=== PATIENT | male | born 1955 | race Caucasian/White ===

== ENCOUNTER 2020-02-01 17:19 | Emergency (ER) | payer OTHER ==
[2020-02-01] MEDS ORDERED: Sodium Chloride 0.9% 1000 ML 1,000 ML IV STA ×2 (18:14→20:23)
[2020-02-01] MEDS ORDERED: Sodium Chloride 0.9% 1000 ML 1,000 ML ONE ×2 (18:30→20:24)
[2020-02-01 18:37] LABS: BASOPHIL % 0.2 % (0.0-0.4); Basophil (Absolute #) 0.05 (0-0.4); Eosinophil (Absolute #) 0.01 (0-0.5); Hematocrit 48.3 % (42-50); Hemoglobin 16.4 gm/dl (12.5-18.0); Lymphocyte (Absolute #) 1.54 (1.0-4.6); Lymphocytes % 5.4 % (24.0-44.0); Mean Cell Volume 95.3 fl (78-100); Mean Corpuscular Hemoglobin 32.3 pg (26-32); Mean Platelet Volume 10.4 fl (7.5-11.0); Monocytes % 7.4 % (0.0-12.0); Platelet Count 219 K/mm3 (150-450); Red Blood Count 5.07 M/mm3 (4.1-5.6); Red Cell Distribution Width 13.6 % (11.5-14.0)
[2020-02-01 18:47] LABS: White Blood Count 28.3 K/mm3 (4.0-10.5)
[2020-02-01 18:54] LABS: INR 1.15 (0.8-3.0)
[2020-02-01 18:56] LABS: PTT 28.8 SECONDS (24.1-36.1)
[2020-02-01 19:04] LABS: ALBUMIN 4.4 g/dL (3.5-5.0); ANION GAP 13.1 MEQ/L (5-15); BILIRUBIN,TOTAL 0.8 mg/dL (0.2-1.3); Calcium 9.8 mg/dL (8.4-10.2); Creatinine 1 1.39 mg/dL (0.66-1.25); Potassium 3.8 mmol/L (3.5-5.1); Total Protein 7.7 g/dL (6.3-8.2)
--- NOTE | 2020-02-01 21:22 | ERPHSYRPT ---
- History of Present Illness Time Seen by Provider: 02/01/20 18:20 Source: patient Exam Limitations: no limitations Patient Subjective Stated Complaint: Patient states that he "started taking a higher dose of his blood pressure medicine. He started feeling lightheaded, sick to his stomach and had diarrhea. Patient states that his blood pressure tanked out on him. Triage Nursing Assessment: Patient is a&ox3, ambulatory, patient appears to be short of breath, has posterior wheezes and rales in the posterior bases. Physician History: Patient is a 64-year-old male who presents with a complaint of nausea and vomiting and weakness after change in his blood pressure medications. He is a CT losartan 25 100 mg was increased and he noticed decreased blood pressure chills nausea vomiting and diarrhea and dizziness. Nitro Today/Relief: no nitro taken today Aspirin Treatment Today: no aspirin today Allergies/Adverse Reactions: lisinopril Adverse Reaction (Intermediate, Verified 02/01/20 19:00) dizziness gabapentin Adverse Reaction (Verified 02/01/20 19:00) prostate problems naproxen Adverse Reaction (Verified 02/01/20 18:58) Home Medications: Amlodipine Besylate [Norvasc] 10 mg PO DAILY 02/01/20 [History] Losartan/Hydrochlorothiazide [Losartan-Hctz 100-25 mg Tab] 1 each PO DAILY 01/31 [History] Hx Tetanus, Diphtheria Vaccination/Date Given: Yes Hx Influenza Vaccination/Date Given: No Hx Pneumococcal Vaccination/Date Given: Yes (3 years ago) - Review of Systems Constitutional: Chills, No Fever Eyes: No Symptoms Ears, Nose, & Throat: No Symptoms Respiratory: Dyspnea, Dyspnea on Exertion (RICHARD), Wheezing, No Cough Cardiac: Chest Pain (His chest pain is a heaviness), No Edema, No Syncope Abdominal/Gastrointestinal: Nausea, Vomiting, Diarrhea, No Abdominal Pain Genitourinary Symptoms: No Dysuria Musculoskeletal: No Back Pain, No Neck Pain Skin: No Rash Neurological: Dizziness, No Focal Weakness, No Sensory Changes Psychological: No Symptoms Endocrine: No Symptoms All Other Systems: Reviewed and Negative - Past Medical History Pertinent Past Medical History: Yes Neurological History: No Pertinent History ENT History: No Pertinent History Cardiac History: High Cholesterol, Hypertension Respiratory History: COPD, Sleep Apnea Endocrine Medical History: Other Musculoskeletal History: Arthritis, Degenerative Disk Disease GI Medical History: No Pertinent History History: No Pertinent History Psycho-Social History: Depression Male Reproductive Disorders: No Pertinent History - Past Surgical History Past Surgical History: Yes Neuro Surgical History: No Pertinent History Cardiac: No Pertinent History Respiratory: No Pertinent History Gastrointestinal: No Pertinent History Genitourinary: No Pertinent History Musculoskeletal: Orthopedic Surgery Male Surgical History: No Pertinent History - Social History Smoking Status: Current every day smoker How long have you smoked: 50 Exposure to second hand smoke: Yes Drug Use: marijuana Patient Lives Alone: Yes - Nursing Vital Signs Nursing Vital Signs: Initial Vital Signs Temperature 99.3 F 02/01/20 18:01 Pulse Rate 104 H 02/01/20 18:01 Respiratory Rate 20 02/01/20 18:01 Blood Pressure 108/64 02/01/20 18:01 O2 Sat by Pulse Oximetry 95 02/01/20 18:01 Pain Scale Pain Intensity 4 - Physical Exam General Appearance: no apparent distress, alert Eye Exam: PERRL/EOMI, eyes nml inspection Ears, Nose, Throat Exam: normal ENT inspection, moist mucous membranes Neck Exam: normal inspection, non-tender, supple Respiratory Exam: normal breath sounds, lungs clear, No respiratory distress Cardiovascular Exam: regular rate/rhythm, normal heart sounds, No edema Gastrointestinal/Abdomen Exam: soft, No tenderness, No mass Back Exam: normal inspection, No CVA tenderness, No vertebral tenderness Extremity Exam: normal inspection, normal range of motion Neurologic Exam: alert, 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, cooperative, normal mood/affect, nml cerebellar function, sensation nml, No motor deficits Skin Exam: normal color, warm, dry Lymphatic Exam: No adenopathy SpO2: 96 - Course Nursing assessment & vital signs reviewed: Yes EKG Interpreted by Me: RATE (94), Sinus Rhythm, NORMAL AXIS, NORMAL INTERVALS, Right Bundle Branch Block, Non-specific ST Changes - Radiology Exams Chest X-ray Interpretation: Interpreted by me, Negative Ordered Tests: Active Orders 24 hr Category Date Time Status Automation Controls Expert STAT Care 02/01/20 18:15 Active EKG-ER Only STAT Care 02/01/20 18:14 Active Orthostatic Vital Signs STAT Care 02/01/20 18:17 Active CHEST 1 VIEW (PORTABLE) Stat Exams 02/01/20 18:15 Taken BLOOD CULTURE Stat Lab 02/01/20 21:00 Received CBC W DIFF Stat Lab 02/01/20 18:30 Completed CMP Stat Lab 02/01/20 18:30 Completed CULTURE,URINE Stat Lab 02/01/20 20:38 Ordered Manual Differential NC Stat Lab 02/01/20 18:30 Completed PROTIME WITH INR Stat Lab 02/01/20 18:30 Completed PTT Stat Lab 02/01/20 18:30 Completed TROPONIN Q3H Lab 02/01/20 18:30 Completed TROPONIN Q3H Lab 02/01/20 21:00 Received TROPONIN Q3H Lab 02/02/20 00:15 Ordered TROPONIN Q3H Lab 02/02/20 03:15 Ordered TROPONIN Q3H Lab 02/02/20 06:15 Ordered Medication Summary Generic Name Dose Route Start Last Admin Trade Name Freq PRN Reason Stop Dose Admin Sodium Chloride 1,000 mls @ 999 mls/hr 02/01/20 20:23 02/01/20 20:25 Sodium Chloride 0.9% 1000 Ml IV 02/01/20 21:23 999 mls/hr .Q1H1M STA Administration Discontinued Medications Generic Name Dose Route Start Last Admin Trade Name Freq PRN Reason Stop Dose Admin Sodium Chloride 1,000 mls @ 999 mls/hr 02/01/20 18:14 02/01/20 18:33 Sodium Chloride 0.9% 1000 Ml IV 02/01/20 19:14 999 mls/hr .Q1H1M STA Administration Sodium Chloride Confirm 02/01/20 18:30 Sodium Chloride 0.9% 1000 Ml Administered 02/01/20 18:31 Dose 1,000 mls @ ud .ROUTE .STK-MED ONE Sodium Chloride Confirm 02/01/20 20:24 Sodium Chloride 0.9% 1000 Ml Administered 02/01/20 20:25 Dose 1,000 mls @ ud .ROUTE .STK-MED ONE Lab/Rad Data: Laboratory Result Diagrams 02/01/20 18:30 02/01/20 18:30 Laboratory Results 02/01/20 02/01/20 02/01/20 Range/Units 18:30 18:30 18:30 WBC (4.0-10.5) K/mm3 RBC (4.1-5.6) M/mm3 Hgb (12.5-18.0) gm/dl Hct (42-50) % MCV (78-100) fl MCH (26-32) pg MCHC (32-36) g/dl RDW (11.5-14.0) % Plt Count (150-450) K/mm3 MPV (7.5-11.0) fl Gran % (36.0-66.0) % Eos # (Auto) (0-0.5) Absolute Lymphs (auto) (1.0-4.6) Absolute Monos (auto) (0.0-1.3) Lymphocytes % (24.0-44.0) % Monocytes % (0.0-12.0) % Eosinophils % (0.00-5.0) % Basophils % (0.0-0.4) % Absolute Granulocytes (1.4-6.9) Basophils # (0-0.4) PT 13.0 H (8.83-12.87) SECONDS INR 1.15 (0.8-3.0) APTT 28.8 (24.1-36.1) SECONDS Sodium 137 (137-145) mmol/L Potassium 3.8 (3.5-5.1) mmol/L Chloride 103 (98-107) mmol/L Carbon Dioxide 25 (22-30) mmol/L Anion Gap 13.1 (5-15) MEQ/L BUN 18 (9-20) mg/dL Creatinine 1.39 H (0.66-1.25) mg/dL Estimated GFR 55.0 ML/MIN Glucose 160 H (74-106) mg/dL Calcium 9.8 (8.4-10.2) mg/dL Total Bilirubin 0.80 (0.2-1.3) mg/dL AST 36 (17-59) U/L ALT 27 (0-50) U/L Alkaline Phosphatase 84 (38-126) U/L Troponin I 0.081 H* (0.000-0.034) ng/mL Serum Total Protein 7.7 (6.3-8.2) g/dL Albumin 4.4 (3.5-5.0) g/dL 02/01/20 Range/Units 18:30 WBC 28.3 H* (4.0-10.5) K/mm3 RBC 5.07 (4.1-5.6) M/mm3 Hgb 16.4 (12.5-18.0) gm/dl Hct 48.3 (42-50) % MCV 95.3 (78-100) fl MCH 32.3 H (26-32) pg MCHC 34.0 (32-36) g/dl RDW 13.6 (11.5-14.0) % Plt Count 219 (150-450) K/mm3 MPV 10.4 (7.5-11.0) fl Gran % 87.0 H (36.0-66.0) % Eos # (Auto) 0.01 (0-0.5) Absolute Lymphs (auto) 1.54 (1.0-4.6) Absolute Monos (auto) 2.10 H (0.0-1.3) Lymphocytes % 5.4 L (24.0-44.0) % Monocytes % 7.4 (0.0-12.0) % Eosinophils % 0.0 (0.00-5.0) % Basophils % 0.2 (0.0-0.4) % Absolute Granulocytes 24.60 H (1.4-6.9) Basophils # 0.05 (0-0.4) PT (8.83-12.87) SECONDS INR (0.8-3.0) APTT (24.1-36.1) SECONDS Sodium (137-145) mmol/L Potassium (3.5-5.1) mmol/L Chloride (98-107) mmol/L Carbon Dioxide (22-30) mmol/L Anion Gap (5-15) MEQ/L BUN (9-20) mg/dL Creatinine (0.66-1.25) mg/dL Estimated GFR ML/MIN Glucose (74-106) mg/dL Calcium (8.4-10.2) mg/dL Total Bilirubin (0.2-1.3) mg/dL AST (17-59) U/L ALT (0-50) U/L Alkaline Phosphatase (38-126) U/L Troponin I (0.000-0.034) ng/mL Serum Total Protein (6.3-8.2) g/dL Albumin (3.5-5.0) g/dL - Progress Progress: improved Air Movement: good Blood Culture(s) Obtained: Yes Antibiotics given: No - Departure Departure Disposition: Transfer (Deferred to [facility] non-STEMI, D r Trupti) Clinical Impression: Non-STEMI (non-ST elevated myocardial infarction) Condition: Fair Critical Care Time: Yes Critical Care Time(excluding separately billable procedures): Critical 30-74 mins Referrals: DOCTOR,NO FAMILY [Primary Care Provider] - Instructions: Heart Attack (DC)
[2020-02-01 21:54] VITALS: BP 141/67; PULSE 97; O2SAT 98
[2020-02-02 00:20] LABS: BAND 1 % (0.0-2.0); Lymphocytes 12 % (24-44); Monocyte 7 % (0.0-12.0); Neutrophils 80 % (36.-66.); Total Cells Counted 100
[2020-02-02 00:22] LABS: ANISOCYTOSIS 1+; Platelet Estimate NORMAL (NORMAL); Poikilocytosis 1+
--- NOTE | 2020-02-02 09:03 | XRAY ---
Indication: Short of breath. High blood pressure. Comparison: None Portable chest clear. Heart and mediastinal structures within normal limits for AP portable technique. Bony thorax intact with mild degenerative changes. Impression: Nonacute chest.
== END 2020-02-01 22:02 | disposition short-term general hospital (02) ==
LOC: ED 17:19
DX: I21.3 ST elevation (STEMI) myocardial infarction of unspecified site (principal)
CPT/HCPCS: 36415; 71045; 80053; 84484; 85025; 85610; 85730; 87040; 87086; 93005; 93041; 96360; 99285; 99291

== ENCOUNTER 2021-08-28 12:01 | Emergency (ER) | payer OTHER ==
--- NOTE | 2021-08-28 12:41 | ERPHSYRPT ---
- History of Present Illness Source: patient Exam Limitations: other (Poor historian) Patient Subjective Stated Complaint: py here for fast heart rate and sob since last night,chills Triage Nursing Assessment: pt arrived per wc, resp easy, face mask in place, has dry cough, skin w/d/p Physician History: 66 yo wm w h/o Afib/HTN/possible [place]-CAD/COPD/continued tobacco abuse presents w dyspnea/palpatations beginning at 21:00 10/3 one hour after taking Xaralto. Pt has a h/o Afib, but he is in NSR upon arrival. Dyspnea appears to be worse w exertion. He denies CP/N/V/diaphoresis/melena/hematochezia/orthopnea/PND/edema. Pt continues to smoke 1ppd. Timing/Duration: other (21:00) Severity of Dyspnea-Max: moderate Severity of Dyspnea-Current: mild Possible Cause: frequent episodes Modifying Factors: Improves With: activity Associated Symptoms: wheezing, heart racing, No anxiety, No cough, No chest pain/discomfort, No edema, No fever, No insomnia, No loss of appetite, No lightheadedness, No weakness, No ankle swelling, No chills, No hemoptysis, No calf pain, No dizziness, No heaviness, No lightheadedness, No leg swelling, No muscle spasms feet, No muscle spasms hands, No painful breathing, No productive cough, No sweating, No tightness, No tingling face, No tingling hands Allergies/Adverse Reactions: lisinopril Adverse Reaction (Intermediate, Verified 08/28/21 12:08) dizziness gabapentin Adverse Reaction (Verified 08/28/21 12:08) prostate problems naproxen Adverse Reaction (Verified 08/28/21 12:08) Home Medications: Amlodipine Besylate [Norvasc] 10 mg PO DAILY 02/01/20 [History] Losartan/Hydrochlorothiazide [Losartan-Hctz 100-25 mg Tab] 1 each PO DAILY 02/01/20 [History] Metoprolol Succinate 50 mg [Toprol Xl 50 MG] 1 ea DAILY 08/28/21 [History] Rivaroxaban 10 mg Tablet [Xarelto 10 mg Tablet] 20 mg DAILY 08/28/21 [History] Hx Tetanus, Diphtheria Vaccination/Date Given: Yes Hx Influenza Vaccination/Date Given: No Hx Pneumococcal Vaccination/Date Given: Yes (3 years ago) Immunizations Up to Date: Yes Travel Risk - International Travel Have you traveled outside of the country in past 3 weeks: No - Coronavirus Screening Are you exhibiting any of the following symptoms?: No Close contact with a COVID-19 positive Pt in past 14-21 Days: No - Vaccine Status Have you recieved a Covid-19 vaccination: No - Review of Systems Constitutional: No Symptoms Eyes: No Symptoms Ears, Nose, & Throat: No Symptoms Respiratory: No Symptoms, Dyspnea on Exertion (RICHARD), Wheezing Cardiac: No Symptoms, Palpitations Abdominal/Gastrointestinal: No Symptoms Genitourinary Symptoms: No Symptoms Musculoskeletal: No Symptoms Skin: No Symptoms Neurological: No Symptoms Psychological: No Symptoms Endocrine: No Symptoms Hematologic/Lymphatic: No Symptoms Immunological/Allergic: No Symptoms - Past Medical History Pertinent Past Medical History: Yes Neurological History: No Pertinent History ENT History: No Pertinent History Cardiac History: Arrhythmia, High Cholesterol, Hypertension Respiratory History: COPD, Sleep Apnea Endocrine Medical History: Other Musculoskeletal History: Arthritis, Degenerative Disk Disease GI Medical History: No Pertinent History History: No Pertinent History Psycho-Social History: Depression Male Reproductive Disorders: No Pertinent History - Past Surgical History Past Surgical History: Yes Neuro Surgical History: No Pertinent History Cardiac: No Pertinent History Respiratory: No Pertinent History Gastrointestinal: No Pertinent History Genitourinary: No Pertinent History Musculoskeletal: Orthopedic Surgery Male Surgical History: No Pertinent History - Social History Smoking Status: Current every day smoker How long have you smoked: 50 Exposure to second hand smoke: Yes Drug Use: marijuana Patient Lives Alone: Yes Significant Family History: no pertinent family hx - Nursing Vital Signs Nursing Vital Signs: Initial Vital Signs Temperature 97.7 F 08/28/21 12:03 Pulse Rate 94 H 08/28/21 12:03 Respiratory Rate 20 08/28/21 12:03 Blood Pressure 165/110 08/28/21 12:03 O2 Sat by Pulse Oximetry 98 08/28/21 12:03 Pain Scale Pain Intensity 2 Hypertensive - Physical Exam General Appearance: no apparent distress, anxiety Eye Exam: PERRL/EOMI, eyes nml inspection Ears, Nose, Throat Exam: hearing grossly normal, normal ENT inspection, normal pharynx Neck Exam: normal inspection, non-tender, supple, full range of motion, No Brudzinski, No Kernig's, No meningismus Respiratory Exam: airway intact, wheezing, No respiratory distress Cardiovascular/Chest Exam: normal heart sounds, regular rate/rhythm, normal peripheral pulses, No murmur Abdominal/Gastrointestinal Exam: soft, normal bowel sounds, No tenderness Extremity Exam: non-tender, normal range of motion, normal inspection, normal capillary refill, no calf tenderness, no pedal edema Peripheral Pulses Exam: carotid (R): 2+, carotid (L): 2+ Neurologic Exam: alert, 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, cooperative, 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 nml as tested, normal mood/affect, nml cerebellar function, nml station & gait, sensation nml, EOM palsy Skin Exam: warm, dry, No rash Lymphatic Exam: No adenopathy SpO2 Interpretation: normal SpO2: 98 O2 Delivery: Room Air - Course Nursing assessment & vital signs reviewed: Yes EKG Interpreted by Me: RATE (NSR/R85/Normal QT-QTc/Low voltage/LAFB) - Radiology Exams Chest X-ray Interpretation: Discussed w/ radiologist (NAD) Ordered Tests: Active Orders 24 hr Category Date Time Status Steam Fitter STAT Care 08/28/21 12:38 Completed EKG-ER Only STAT Care 08/28/21 12:34 Completed IV Insertion STAT Care 08/28/21 12:38 Completed CHEST 1 VIEW (PORTABLE) Stat Exams 08/28/21 12:34 Completed CBC W DIFF Stat Lab 08/28/21 12:45 Completed CMP Stat Lab 08/28/21 12:45 Completed MAGNESIUM Stat Lab 08/28/21 12:45 Completed NT PRO BNP Stat Lab 08/28/21 12:45 Completed PROTIME WITH INR Stat Lab 08/28/21 12:45 Completed PTT Stat Lab 08/28/21 12:45 Completed TROPONIN Q3H Lab 08/28/21 12:45 Completed Lab/Rad Data: Laboratory Result Diagrams 08/28/21 12:45 08/28/21 12:45 Laboratory Results 08/28/21 08/28/21 08/28/21 Range/Units 12:45 12:45 12:45 WBC (4.0-10.5) K/mm3 RBC (4.1-5.6) M/mm3 Hgb (12.5-18.0) gm/dl Hct (42-50) % MCV (78-100) fl MCH (26-32) pg MCHC (32-36) g/dl RDW (11.5-14.0) % Plt Count (150-450) K/mm3 MPV (7.5-11.0) fl Gran % (36.0-66.0) % Eos # (Auto) (0-0.5) Absolute Lymphs (auto) (1.0-4.6) Absolute Monos (auto) (0.0-1.3) Lymphocytes % (24.0-44.0) % Monocytes % (0.0-12.0) % Eosinophils % (0.00-5.0) % Basophils % (0.0-0.4) % Absolute Granulocytes (1.4-6.9) Basophils # (0-0.4) PT 16.8 H (9.4-12.5) SECONDS INR 1.42 (0.8-3.0) APTT 37.2 H (25.1-36.5) SECONDS Sodium 140 (137-145) mmol/L Potassium 4.0 (3.5-5.1) mmol/L Chloride 107 (98-107) mmol/L Carbon Dioxide 25 (22-30) mmol/L Anion Gap 12.0 (5-15) MEQ/L BUN 10 (9-20) mg/dL Creatinine 0.99 (0.66-1.25) mg/dL Estimated GFR > 60.0 ML/MIN Glucose 129 H (74-106) mg/dL Calcium 9.6 (8.4-10.2) mg/dL Magnesium 2.0 (1.6-2.3) mg/dL Total Bilirubin 0.50 (0.2-1.3) mg/dL AST 23 (17-59) U/L ALT 19 (0-50) U/L Alkaline Phosphatase 97 (38-126) U/L Troponin I < 0.012 (0.000-0.034) ng/mL NT-Pro-B Natriuret Pep 155 (0-900) pg/mL Serum Total Protein 7.0 (6.3-8.2) g/dL Albumin 4.2 (3.5-5.0) g/dL 08/28/21 Range/Units 12:45 WBC 7.8 (4.0-10.5) K/mm3 RBC 5.36 (4.1-5.6) M/mm3 Hgb 17.7 (12.5-18.0) gm/dl Hct 52.4 H (42-50) % MCV 97.8 (78-100) fl MCH 33.0 H (26-32) pg MCHC 33.8 (32-36) g/dl RDW 13.8 (11.5-14.0) % Plt Count 187 (150-450) K/mm3 MPV 11.7 H (7.5-11.0) fl Gran % 66.6 H (36.0-66.0) % Eos # (Auto) 0.10 (0-0.5) Absolute Lymphs (auto) 1.86 (1.0-4.6) Absolute Monos (auto) 0.62 (0.0-1.3) Lymphocytes % 23.8 L (24.0-44.0) % Monocytes % 7.9 (0.0-12.0) % Eosinophils % 1.3 (0.00-5.0) % Basophils % 0.4 (0.0-0.4) % Absolute Granulocytes 5.20 (1.4-6.9) Basophils # 0.03 (0-0.4) PT (9.4-12.5) SECONDS INR (0.8-3.0) APTT (25.1-36.5) SECONDS Sodium (137-145) mmol/L Potassium (3.5-5.1) mmol/L Chloride (98-107) mmol/L Carbon Dioxide (22-30) mmol/L Anion Gap (5-15) MEQ/L BUN (9-20) mg/dL Creatinine (0.66-1.25) mg/dL Estimated GFR ML/MIN Glucose (74-106) mg/dL Calcium (8.4-10.2) mg/dL Magnesium (1.6-2.3) mg/dL Total Bilirubin (0.2-1.3) mg/dL AST (17-59) U/L ALT (0-50) U/L Alkaline Phosphatase (38-126) U/L Troponin I (0.000-0.034) ng/mL NT-Pro-B Natriuret Pep (0-900) pg/mL Serum Total Protein (6.3-8.2) g/dL Albumin (3.5-5.0) g/dL - Progress Progress: improved Progress Note: 08/28/21 13:42 Pt wo evidence of Afib, ectopy, or malignant rhythm in ER No chest pain or dyspnea in ER. 08/28/21 16:59 Counseled pt/family regarding: lab results, diagnosis, need for follow-up, rad results - Departure Departure Disposition: Home Clinical Impression: Heart palpitations Condition: Stable Critical Care Time: No Referrals: CAROLINE CUEVA NP [Primary Care Provider] - Instructions: Arrhythmias (DC), Palpitations (DC) Additional Instructions: Continue current medications Follow up with your coat joiner in 1-2 days Return to ER for chest pain/shortness of breath/Elevated heart rate
[2021-08-28 13:00] LABS: INR 1.42 (0.8-3.0); PROTIME 16.8 SECONDS (9.4-12.5)
[2021-08-28 13:02] LABS: BASOPHIL % 0.4 % (0.0-0.4); Basophil (Absolute #) 0.03 (0-0.4); Eosinophil % 1.3 % (0.00-5.0); Hematocrit 52.4 % (42-50); Hemoglobin 17.7 gm/dl (12.5-18.0); Lymphocyte (Absolute #) 1.86 (1.0-4.6); Lymphocytes % 23.8 % (24.0-44.0); Mean Cell Volume 97.8 fl (78-100); Mean Corpuscular Hgb Concent. 33.8 g/dl (32-36); Mean Platelet Volume 11.7 fl (7.5-11.0); Monocyte (Absolute #) 0.62 (0.0-1.3); Monocytes % 7.9 % (0.0-12.0); Neutrophil % 66.6 % (36.0-66.0); Platelet Count 187 K/mm3 (150-450); Red Blood Count 5.36 M/mm3 (4.1-5.6); Red Cell Distribution Width 13.8 % (11.5-14.0); White Blood Count 7.8 K/mm3 (4.0-10.5)
[2021-08-28 13:03] LABS: PTT 37.2 SECONDS (25.1-36.5)
[2021-08-28 13:17] VITALS: BP 153/88
--- NOTE | 2021-08-28 13:18 | XRAY ---
Indication: Dyspnea. Comparison: February 01, 2020. Portable chest again demonstrates COPD without focal infiltrate, consolidation, or large effusion. Heart not enlarged. Bony thorax intact. No new/acute findings.
[2021-08-28 13:20] LABS: ALBUMIN 4.2 g/dL (3.5-5.0); ALKALINE PHOSPHATASE 97 U/L (38-126); BLOOD UREA NITROGEN 10 mg/dL (9-20); CHLORIDE 107 mmol/L (98-107); Calcium 9.6 mg/dL (8.4-10.2); Carbon Dioxide 25 mmol/L (22-30); Creatinine 1 0.99 mg/dL (0.66-1.25); EST GLOMERULAR FILTRATION RATE > 60.0 ML/MIN; Glucose 129 mg/dL (74-106); NT PRO BNP 155 pg/mL (0-900); SGOT/AST 23 U/L (17-59); SGPT/ALT 19 U/L (0-50); SODIUM 140 mmol/L (137-145)
[2021-08-28 13:38] VITALS: O2SAT 98
[2021-08-28 13:50] VITALS: PULSE 84
== END 2021-08-28 13:54 | disposition home or self-care (01) ==
LOC: ED 12:01
DX: R00.2 Palpitations (principal); Z79.899 Other long term (current) drug therapy; Z86.79 Personal history of other diseases of the circulatory system; I10 Essential (primary) hypertension; Z79.01 Long term (current) use of anticoagulants
CPT/HCPCS: 36000; 36415; 71045; 80053; 83735; 83880; 84484; 85025; 85610; 85730; 93005; 93041; 99284

== ENCOUNTER 2022-01-06 16:32 | Observation (INO) | payer OTHER ==
[2022-01-06] MEDS ORDERED: Sodium Chloride 0.9% 1000 ML 1,000 ML IV STA (16:57)
[2022-01-06] MEDS ORDERED: MORPHINE SULFATE 2 MG INJ IV ONE (16:57)
[2022-01-06] MEDS ORDERED: Zofran 4 MG/2 ML VIAL IV ONE (16:57)
[2022-01-06] MEDS ORDERED: Sodium Chloride 0.9% 1000 ML 1,000 ML ONE (17:19)
[2022-01-06] MEDS ORDERED: Zofran 4 MG/2 ML VIAL ONE (17:19)
[2022-01-06] MEDS ORDERED: MORPHINE SULFATE 2 MG INJ ONE (17:19)
[2022-01-06] MEDS ORDERED: MORPHINE SULFATE 4 MG INJ IV ONE (17:22)
[2022-01-06] MEDS ORDERED: MORPHINE SULFATE 4 MG INJ ONE (17:42)
--- NOTE | 2022-01-06 17:52 | ERPHSYRPT ---
- History of Present Illness Time Seen by Provider: 01/06/22 16:50 Historian: patient Exam Limitations: no limitations Patient Subjective Stated Complaint: pt here for nausea, loose stools, weakness, chills and back pain for 3-4 days Triage Nursing Assessment: pt alert, resp easy, face mask in place, no cough, no edema noted, skin w/d/p Physician History: 66 years old male with history of atrial fibrillation on Xarelto, hypertension, hyperlipidemia presented in the ER with chief complaint of generalized abdominal pain off and on for the last 3 days with associated nausea vomiting and diarrhea. Patient also reports generalized weakness fatigue tiredness, lack of energy to do his routine activities. Unable to hold much down. Complaint of minimal productive cough but no chest pain or palpitations. No fever or chills reported. Timing/Duration: day(s) (4), gradual onset, worse Activities at Onset: rest Quality: cramping Abdominal Pain Onset Location: generalized abdomen Pain Radiation: no radiation Severity of Pain-Max: moderate Severity of Pain-Current: moderate Modifying Factors: Improves With: coughing Associated Symptoms: diarrhea, fatigue, nausea, vomiting Previous symptoms: no prior history Allergies/Adverse Reactions: lisinopril Adverse Reaction (Intermediate, Verified 01/06/22 16:40) dizziness gabapentin Adverse Reaction (Verified 01/06/22 16:40) prostate problems naproxen Adverse Reaction (Verified 01/06/22 16:40) Home Medications: Losartan/Hydrochlorothiazide [Losartan-Hctz 100-25 mg Tab] 1 each PO DAILY 02/01/20 [History] Metoprolol Succinate 50 mg [Toprol Xl 50 MG] 25 mg DAILY 08/28/21 [History] Rivaroxaban 10 mg Tablet [Xarelto 10 mg Tablet] 20 mg DAILY 08/28/21 [History] Diltiazem HCl [Diltiazem 24Hr ER] 1 ea DAILY 01/06/22 [History] Famotidine [Pepcid AC] 1 ea DAILY 01/06/22 [History] Montelukast Sodium 10 mg [Singulair 10 MG] 1 ea DAILY 01/06/22 [History] Hx Tetanus, Diphtheria Vaccination/Date Given: Yes Hx Influenza Vaccination/Date Given: No Hx Pneumococcal Vaccination/Date Given: Yes (3 years ago) Immunizations Up to Date: Yes Travel Risk - International Travel Have you traveled outside of the country in past 3 weeks: No - Coronavirus Screening Are you exhibiting any of the following symptoms?: Yes Symptoms: Cough: New Onset, Shortness of Breath, Vomiting/Diarrhea, Headaches/Body Aches/Fatigue Close contact with a COVID-19 positive Pt in past 14-21 Days: Yes - Vaccine Status Have you recieved a Covid-19 vaccination: No - Review of Systems Constitutional: Fatigue, Weakness Eyes: No Symptoms Ears, Nose, & Throat: No Symptoms Respiratory: Cough Cardiac: No Symptoms Abdominal/Gastrointestinal: Abdominal Pain, Nausea, Vomiting, Diarrhea Genitourinary Symptoms: No Symptoms Musculoskeletal: Back Pain Neurological: No Symptoms Psychological: No Symptoms Endocrine: No Symptoms Hematologic/Lymphatic: No Symptoms Immunological/Allergic: No Symptoms - Past Medical History Pertinent Past Medical History: Yes Neurological History: No Pertinent History ENT History: No Pertinent History Cardiac History: Arrhythmia, High Cholesterol, Hypertension Respiratory History: COPD, Sleep Apnea Endocrine Medical History: Other Musculoskeletal History: Arthritis, Degenerative Disk Disease GI Medical History: No Pertinent History History: No Pertinent History Psycho-Social History: Depression Male Reproductive Disorders: No Pertinent History - Past Surgical History Past Surgical History: Yes Neuro Surgical History: No Pertinent History Cardiac: No Pertinent History Respiratory: No Pertinent History Gastrointestinal: No Pertinent History Genitourinary: No Pertinent History Musculoskeletal: Orthopedic Surgery Male Surgical History: No Pertinent History - Social History Smoking Status: Current every day smoker How long have you smoked: 50 Exposure to second hand smoke: Yes Drug Use: marijuana Patient Lives Alone: Yes Significant Family History: no pertinent family hx - Nursing Vital Signs Nursing Vital Signs: Initial Vital Signs Temperature 97.5 F 01/06/22 16:33 Pulse Rate 107 H 01/06/22 16:33 Respiratory Rate 20 01/06/22 16:33 Blood Pressure 170/88 01/06/22 16:33 O2 Sat by Pulse Oximetry 95 01/06/22 16:33 Pain Scale Pain Intensity 10 - Physical Exam General Appearance: no apparent distress, alert Eye Exam: PERRL/EOMI, eyes nml inspection Ears, Nose, Throat Exam: normal ENT inspection, TMs normal, pharynx normal, dry mucous membranes Neck Exam: normal inspection, non-tender, supple, full range of motion Respiratory Exam: normal breath sounds, lungs clear Cardiovascular Exam: regular rate/rhythm, normal heart sounds Gastrointestinal/Abdomen Exam: soft, normal bowel sounds, tenderness (Generalized mild to moderate), No guarding Back Exam: normal inspection, normal range of motion, No CVA tenderness Extremity Exam: normal inspection, normal range of motion, pelvis stable Neurologic Exam: alert, 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, cooperative Skin Exam: normal color SpO2 Interpretation: normal SpO2: 95 O2 Delivery: Room Air - Course EKG Interpreted by Me: RATE (101), Sinus Tach, Left Burton Deviation, LAFB, Right Bundle Branch Block, Non-specific ST Changes Ordered Tests: Active Orders 24 hr Category Date Time Status EKG-ER Only STAT Care 01/06/22 16:57 Active IV Insertion STAT Care 01/06/22 16:57 Active ABDOMEN AND PELVIS W/0 CONTRAS [CT] Stat Exams 01/06/22 16:57 Completed CHEST WITHOUT CONTRAST [CT] Stat Exams 01/06/22 16:58 Completed BLOOD CULTURE Stat Lab 01/06/22 17:50 Received CBC W DIFF Stat Lab 01/06/22 17:35 Completed CMP Stat Lab 01/06/22 17:35 Completed COVID AG-BINAX NOW RAPID TEST Stat Lab 01/06/22 18:33 Completed LIPASE Stat Lab 01/06/22 17:35 Completed Lactic Acid Stat Lab 01/06/22 16:57 Completed Lactic Acid Stat Lab 01/06/22 19:10 Completed Manual Differential NC Stat Lab 01/06/22 17:35 Completed TROPONIN Q3H Lab 01/06/22 17:35 Completed TROPONIN Q3H Lab 01/06/22 19:56 Received TROPONIN Q3H Lab 01/06/22 23:00 Ordered TROPONIN Q3H Lab 01/07/22 02:00 Ordered TROPONIN Q3H Lab 01/07/22 05:00 Ordered UA W/RFX UR CULTURE Stat Lab 01/06/22 18:58 Completed Transfer Order Routine Transfer 01/06/22 Ordered Medication Summary Discontinued Medications Generic Name Dose Route Start Last Admin Trade Name Freq PRN Reason Stop Dose Admin Sodium Chloride 1,000 mls @ 999 mls/hr 01/06/22 16:57 01/06/22 19:11 Sodium Chloride 0.9% 1000 Ml IV 01/06/22 17:57 Infused .Q1H1M STA Infusion Sodium Chloride Confirm 01/06/22 17:19 Sodium Chloride 0.9% 1000 Ml Administered 01/06/22 17:20 Dose 1,000 mls @ ud .ROUTE .STK-MED ONE Levofloxacin/Dextrose 750 mg in 150 mls @ 100 mls/hr 01/06/22 19:13 Levofloxacin 750mg/150ml D5w IV 01/06/22 20:42 STAT STA Piperacillin Sod/Tazobactam 100 mls @ 200 mls/hr 01/06/22 19:13 01/06/22 19:45 Sod 3.375 gm/ Sodium Chloride IV 01/06/22 19:42 200 mls/hr STAT ONE Administration Sodium Chloride Confirm 01/06/22 19:44 Sodium Chloride 100ml Mini-Bag Plus Administered 01/06/22 19:45 Dose 100 mls @ ud IV .STK-MED ONE Morphine Sulfate 2 mg 01/06/22 16:57 01/06/22 17:38 Morphine Sulfate 2 Mg/Ml Inj IV 01/06/22 16:58 Not Given STAT ONE Morphine Sulfate Confirm 01/06/22 17:19 Morphine Sulfate 2 Mg/Ml Inj Administered 01/06/22 17:20 Dose 2 mg .ROUTE .STK-MED ONE Morphine Sulfate 4 mg 01/06/22 17:22 01/06/22 17:36 Morphine Sulfate 4 Mg/Ml Injection IV 01/06/22 17:23 4 mg STAT ONE Administration Morphine Sulfate Confirm 01/06/22 17:42 Morphine Sulfate 4 Mg/Ml Injection Administered 01/06/22 17:43 Dose 4 mg .ROUTE .STK-MED ONE Ondansetron HCl 4 mg 01/06/22 16:57 01/06/22 17:33 Ondansetron Hcl 4 Mg/2 Ml Vial IV 01/06/22 16:58 4 mg STAT ONE Administration Ondansetron HCl Confirm 01/06/22 17:19 Ondansetron Hcl 4 Mg/2 Ml Vial Administered 01/06/22 17:20 Dose 4 mg .ROUTE .STK-MED ONE Piperacillin Sod/Tazobactam Sod Confirm 01/06/22 19:44 Piperacillin/Tazobactam Sodium 3.375 Gm Vial Administered 01/06/22 19:45 Dose 3.375 gm IV .STK-MED ONE Lab/Rad Data: Laboratory Result Diagrams 01/06/22 17:35 01/06/22 17:35 Laboratory Results 01/06/22 01/06/2201/06/22 Range/Units 19:10 18:58 18:33 WBC (4.0-10.5) K/mm3 RBC (4.1-5.6) M/mm3 Hgb (12.5-18.0) gm/dl Hct (42-50) % MCV (78-100) fl MCH (26-32) pg MCHC (32-36) g/dl RDW (11.5-14.0) % Plt Count (150-450) K/mm3 MPV (7.5-11.0) fl Sodium (137-145) mmol/L Potassium (3.5-5.1) mmol/L Chloride (98-107) mmol/L Carbon Dioxide (22-30) mmol/L Anion Gap (5-15) MEQ/L BUN (9-20) mg/dL Creatinine (0.66-1.25) mg/dL Estimated GFR ML/MIN Glucose (74-106) mg/dL Lactic Acid 1.1 (0.4-2.0) Calcium (8.4-10.2) mg/dL Total Bilirubin (0.2-1.3) mg/dL AST (17-59) U/L ALT (0-50) U/L Alkaline Phosphatase (38-126) U/L Troponin I (0.000-0.034) ng/mL Serum Total Protein (6.3-8.2) g/dL Albumin (3.5-5.0) g/dL Lipase (23-300) U/L Urine Color YELLOW (YELLOW) Urine Appearance CLEAR (CLEAR) Urine pH 6.0 (5-6) Ur Specific Bri[place] 1.010 (1.005-1.025) Urine Protein NEGATIVE (Negative) Urine Ketones SMALL (NEGATIVE) Urine Blood NEGATIVE (0-5) Gaston/ul Urine Nitrite NEGATIVE (NEGATIVE) Urine Bilirubin NEGATIVE (NEGATIVE) Urine Urobilinogen 4 (0-1) mg/dL Ur Leukocyte Esterase NEGATIVE (NEGATIVE) Urine WBC (Auto) NONE (0-5) /HPF Urine RBC (Auto) NONE (0-2) /HPF U Epithel Cells (Auto) NONE (FEW) /HPF Urine Bacteria (Auto) NONE (NEGATIVE) /HPF Urine Mucus (Auto) SLIGHT (NEGATIVE) /HPF Urine Culture Reflexed NO (NO) Urine Glucose NEGATIVE (NEGATIVE) mg/dL SARS-CoV-2 Ag (Rapid) NEGATIVE (NEGATIVE) 01/06/22 01/06/22 01/06/22 Range/Units 17:35 17:35 17:35 WBC 31.4 H* (4.0-10.5) K/mm3 RBC 5.32 (4.1-5.6) M/mm3 Hgb 17.4 (12.5-18.0) gm/dl Hct 50.1 H (42-50) % MCV 94.2 (78-100) fl MCH 32.7 H (26-32) pg MCHC 34.7 (32-36) g/dl RDW 13.7 (11.5-14.0) % Plt Count 243 (150-450) K/mm3 MPV 11.0 (7.5-11.0) fl Sodium 136 L (137-145) mmol/L Potassium 3.6 (3.5-5.1) mmol/L Chloride 101 (98-107) mmol/L Carbon Dioxide 23 (22-30) mmol/L Anion Gap 15.8 H (5-15) MEQ/L BUN 10 (9-20) mg/dL Creatinine 1.05 (0.66-1.25) mg/dL Estimated GFR > 60.0 ML/MIN Glucose 127 H (74-106) mg/dL Lactic Acid (0.4-2.0) Calcium 9.0 (8.4-10.2) mg/dL Total Bilirubin 1.70 H (0.2-1.3) mg/dL AST 15 L (17-59) U/L ALT 13 (0-50) U/L Alkaline Phosphatase 107 (38-126) U/L Troponin I < 0.012 (0.000-0.034) ng/mL Serum Total Protein 6.8 (6.3-8.2) g/dL Albumin 3.8 (3.5-5.0) g/dL Lipase 30 (23-300) U/L Urine Color (YELLOW) Urine Appearance (CLEAR) Urine pH (5-6) Ur Specific Bri[place] (1.005-1.025) Urine Protein (Negative) Urine Ketones (NEGATIVE) Urine Blood (0-5) Gaston/ul Urine Nitrite (NEGATIVE) Urine Bilirubin (NEGATIVE) Urine Urobilinogen (0-1) mg/dL Ur Leukocyte Esterase (NEGATIVE) Urine WBC (Auto) (0-5) /HPF Urine RBC (Auto) (0-2) /HPF U Epithel Cells (Auto) (FEW) /HPF Urine Bacteria (Auto) (NEGATIVE) /HPF Urine Mucus (Auto) (NEGATIVE) /HPF Urine Culture Reflexed (NO) Urine Glucose (NEGATIVE) mg/dL SARS-CoV-2 Ag (Rapid) (NEGATIVE) 01/06/22 Range/Units 16:57 WBC (4.0-10.5) K/mm3 RBC (4.1-5.6) M/mm3 Hgb (12.5-18.0) gm/dl Hct (42-50) % MCV (78-100) fl MCH (26-32) pg MCHC (32-36) g/dl RDW (11.5-14.0) % Plt Count (150-450) K/mm3 MPV (7.5-11.0) fl Sodium (137-145) mmol/L Potassium (3.5-5.1) mmol/L Chloride (98-107) mmol/L Carbon Dioxide (22-30) mmol/L Anion Gap (5-15) MEQ/L BUN (9-20) mg/dL Creatinine (0.66-1.25) mg/dL Estimated GFR ML/MIN Glucose (74-106) mg/dL Lactic Acid 2.0 (0.4-2.0) Calcium (8.4-10.2) mg/dL Total Bilirubin (0.2-1.3) mg/dL AST (17-59) U/L ALT (0-50) U/L Alkaline Phosphatase (38-126) U/L Troponin I (0.000-0.034) ng/mL Serum Total Protein (6.3-8.2) g/dL Albumin (3.5-5.0) g/dL Lipase (23-300) U/L Urine Color (YELLOW) Urine Appearance (CLEAR) Urine pH (5-6) Ur Specific Bri[place] (1.005-1.025) Urine Protein (Negative) Urine Ketones (NEGATIVE) Urine Blood (0-5) Gaston/ul Urine Nitrite (NEGATIVE) Urine Bilirubin (NEGATIVE) Urine Urobilinogen (0-1) mg/dL Ur Leukocyte Esterase (NEGATIVE) Urine WBC (Auto) (0-5) /HPF Urine RBC (Auto) (0-2) /HPF U Epithel Cells (Auto) (FEW) /HPF Urine Bacteria (Auto) (NEGATIVE) /HPF Urine Mucus (Auto) (NEGATIVE) /HPF Urine Culture Reflexed (NO) Urine Glucose (NEGATIVE) mg/dL SARS-CoV-2 Ag (Rapid) (NEGATIVE) - Progress Progress: improved, pain not gone completely, re-examined Progress Note: 01/06/22 19:19 66-year-old is evaluated for nausea vomiting abdominal pain/Covid-like symptoms. Patient did not have any obvious difficulty breathing. Is given fluids and symptomatic treatment for pain, on reevaluation feeling better. Patient has a white count of 31 with chemistries showing elevated bilirubin of 1.7. I have obtained CT chest/abdomen pelvis which showed left upper lobe pneumonia and some cavitary lesions and no acute finding in the abdomen. He is given broad- spectrum antibiotics Levaquin and Zosyn. Discussed with and patient is admitted. Discussed with : Qiana Will see patient in: hospital (observation) Counseled pt/family regarding: lab results, diagnosis, need for follow-up, rad results, smoking cessation - Departure Departure Disposition: Observation Clinical Impression: Pneumonia, Gastroenteritis Condition: Stable Critical Care Time: No Referrals: CAROLINE CUEVA NP [Primary Care Provider] - Follow up/PCP as directed
[2022-01-06 17:55] LABS: Hematocrit 50.1 % (42-50); Hemoglobin 17.4 gm/dl (12.5-18.0); Mean Cell Volume 94.2 fl (78-100); Mean Corpuscular Hemoglobin 32.7 pg (26-32); Mean Corpuscular Hgb Concent. 34.7 g/dl (32-36); Platelet Count 243 K/mm3 (150-450); Red Blood Count 5.32 M/mm3 (4.1-5.6); Red Cell Distribution Width 13.7 % (11.5-14.0)
[2022-01-06 18:00] LABS: White Blood Count 31.4 K/mm3 (4.0-10.5)
[2022-01-06 18:04] LABS: ALBUMIN 3.8 g/dL (3.5-5.0); ALKALINE PHOSPHATASE 107 U/L (38-126); ANION GAP 15.8 MEQ/L (5-15); BLOOD UREA NITROGEN 10 mg/dL (9-20); CHLORIDE 101 mmol/L (98-107); Carbon Dioxide 23 mmol/L (22-30); Creatinine 1 1.05 mg/dL (0.66-1.25); EST GLOMERULAR FILTRATION RATE > 60.0 ML/MIN; Glucose 127 mg/dL (74-106); LIPASE 30 U/L (23-300); Potassium 3.6 mmol/L (3.5-5.1); SGOT/AST 15 U/L (17-59); SGPT/ALT 13 U/L (0-50); SODIUM 136 mmol/L (137-145); Total Protein 6.8 g/dL (6.3-8.2)
[2022-01-06 19:01] LABS: COVID AG -BINAX NOW RAPID TEST NEGATIVE (NEGATIVE)
[2022-01-06] MEDS ORDERED: Zosyn 3.375 GM Vial 3.375 GM in Sodium Chloride 100ML MINI-BAG PLUS 100 ML IV ONE (19:13)
[2022-01-06] MEDS ORDERED: LEVOFLOXACIN 750MG/150ML D5W 750 MG/150 ML BAG IV STA (19:13)
[2022-01-06 19:22] LABS: Appearance CLEAR (CLEAR); Bilirubin NEGATIVE (NEGATIVE); Blood NEGATIVE Ery/ul (0-5); Glucose NEGATIVE (NEGATIVE); Ketones SMALL (NEGATIVE); Leukocyte Esterase NEGATIVE (NEGATIVE); Mucus SLIGHT /HPF (NEGATIVE); Nitrite NEGATIVE (NEGATIVE); Protein,Urine Dip NEGATIVE (Negative); Urobilinogen 4 mg/dL (0-1)
--- NOTE | 2022-01-06 19:36 | XRAY ---
Indication: Cough, short of breath, and abdomen pain. Multiple contiguous axial images obtained through the abdomen and pelvis without contrast. Comparison: None. CT chest reported separately. Noncontrasted stomach and bowel loops appear nonobstructed. Normal appendix. Scattered colonic diverticulosis without diverticulitis. No free fluid/air. Nonobstructing left renal punctate calculus. Tiny splenic calcified granulomas. Remaining liver, gallbladder, pancreas, spleen, adrenal glands, kidneys, ureters, and bladder appear unremarkable for noncontrast exam. Mild scattered aortoiliac calcifications without AAA. Osseous structures intact with moderate degenerative changes throughout the thoracolumbar spine and both hips. No ventral or inguinal hernias. Impression: 1. Nonobstructing left renal micro-calculus, colonic diverticulosis, chronic bony findings, and old granulomatous disease. 2. Remaining CT abdomen/pelvis without contrast exam is negative. Comment: Preliminary interpretation made by C. No critical discrepancy.
--- NOTE | 2022-01-06 19:39 | XRAY ---
Indication: Cough and short of breath. Multiple contiguous axial images obtained through the chest without contrast. Comparison: November 06, 2019. New posterior right upper lobe consolidating airspace disease. Medial left lower lobe demonstrates new 3 cm irregular noncalcified subpleural masslike opacity with small cavitation. Partial differential includes bronchogenic carcinoma, metastasis, tuberculosis, and cavitating pneumonia. Elsewhere there remains diffuse centrilobular pulmonary emphysema with minimal scattered fibrosis/scarring. No effusion or pneumothorax. Heart not enlarged. Aorta is again minimally arteriosclerotic without aneurysm. Stable small right hilar calcified nodes. No pathologic mediastinal lymphadenopathy. Bony thorax intact again with mild degenerative changes throughout the spine. CT abdomen/pelvis reported separately. Impression: 1. New right upper lobe airspace disease. 2. New irregular left lower lobe cavitary mass. Partial differential offered above. 3. Again pulmonary emphysema and old granulomatous disease. Comment: Preliminary interpretation made by C. No critical discrepancy.
[2022-01-06] MEDS ORDERED: Zosyn 3.375 GM Vial IV ONE (19:44)
[2022-01-06] MEDS ORDERED: Sodium Chloride 100ML MINI-BAG PLUS 100 ML IV ONE (19:44)
[2022-01-06 21:00] LABS: INFLUENZA A NEGATIVE (NEGATIVE); INFLUENZA B NEGATIVE (NEGATIVE); RESPIRATORY SYNCTIAL VIRUS NEGATIVE (Negative); SARS-CoV-2 Xpert Express NEGATIVE (NEGATIVE)
[2022-01-06] MEDS ORDERED: LEVOFLOXACIN 750MG/150ML D5W 750 MG/150 ML BAG IV ONE (21:00)
[2022-01-06] MEDS: MORPHINE SULFATE 2 MG INJ IV PRN (22:42)
[2022-01-06] MEDS: Sodium Chloride 0.9% 1000 ML 1,000 ML IV SCH (22:45)
[2022-01-06 23:16] LABS: BAND 5 % (0.0-2.0); Basophil 1 % (0.0-1.0); Lymphocytes 2 % (24-44); Monocyte 3 % (0.0-12.0); Neutrophils 89 % (36.-66.); Platelet Estimate NORMAL (NORMAL); Total Cells Counted 100
[2022-01-07] MEDS: DUONEB 0.5-3 MG/3 ml Neb IH SCH ×3 (00:24→19:00)
[2022-01-07] MEDS ORDERED: Zosyn 3.375 GM Vial IV ONE ×2 (00:37→06:28)
[2022-01-07] MEDS ORDERED: Sodium Chloride 100ML MINI-BAG PLUS 100 ML IV ONE ×2 (00:39→06:30)
[2022-01-07] MEDS: Zosyn 3.375 GM Vial 3.375 GM in Sodium Chloride 100ML MINI-BAG PLUS 100 ML IV SCH ×4 (00:43→19:59)
[2022-01-07] MEDS: TYLENOL 325 MG PO PRN ×2 (00:58→23:34)
[2022-01-07] MEDS: MORPHINE SULFATE 2 MG INJ IV PRN ×4 (04:51→21:03)
[2022-01-07 05:13] LABS: Absolute Neutrophil Ct (ANC) 26.32 (1.4-6.9); Basophil (Absolute #) 0.03 (0-0.4); Eosinophil % 0.2 % (0.00-5.0); Eosinophil (Absolute #) 0.05 (0-0.5); Hematocrit 46.9 % (42-50); Hemoglobin 15.9 gm/dl (12.5-18.0); Lymphocyte (Absolute #) 1.33 (1.0-4.6); Lymphocytes % 4.3 % (24.0-44.0); Mean Cell Volume 97.1 fl (78-100); Mean Corpuscular Hemoglobin 32.9 pg (26-32); Mean Corpuscular Hgb Concent. 33.9 g/dl (32-36); Monocyte (Absolute #) 3.08 (0.0-1.3); Neutrophil % 85.4 % (36.0-66.0); Platelet Count 182 K/mm3 (150-450); Red Blood Count 4.83 M/mm3 (4.1-5.6); Red Cell Distribution Width 14.1 % (11.5-14.0)
[2022-01-07 05:24] LABS: White Blood Count 30.8 K/mm3 (4.0-10.5)
[2022-01-07 05:39] LABS: ALBUMIN 3.4 g/dL (3.5-5.0); ALKALINE PHOSPHATASE 77 U/L (38-126); ANION GAP 10.8 MEQ/L (5-15); BLOOD UREA NITROGEN 11 mg/dL (9-20); CHLORIDE 105 mmol/L (98-107); Calcium 8.4 mg/dL (8.4-10.2); Carbon Dioxide 24 mmol/L (22-30); Creatinine 1 1.05 mg/dL (0.66-1.25); EST GLOMERULAR FILTRATION RATE > 60.0 ML/MIN; Glucose 111 mg/dL (74-106); Potassium 3.9 mmol/L (3.5-5.1); SGOT/AST 13 U/L (17-59); SGPT/ALT 11 U/L (0-50); SODIUM 135 mmol/L (137-145); Total Protein 6.5 g/dL (6.3-8.2)
[2022-01-07 06:54] LABS: BAND 12 % (0.0-2.0); Eosinophil 1 % (0.00-3.0); Lymphocytes 4 % (24-44); Monocyte 8 % (0.0-12.0); Neutrophils 75 % (36.-66.); Platelet Estimate NORMAL (NORMAL); Total Cells Counted 100; Toxic Granulation 2+
[2022-01-07 06:55] LABS: Polychromasia 1+
--- NOTE | 2022-01-07 07:29 | PCM.HP ---
History of Present Illness - Chief Complaint Chief Complaint: c/o abdominal pain, nausea, vomiting for 1-2 days History of Present Illness: is a 66 year old male.with history of atrial fibrillation on Xarelto, hypertension, hyperlipidemia presented in the ER with chief complaint of gene ralized abdominal pain off and on for the last 3 days with associated nausea vomiting and diarrhea. Patient also reports generalized weakness fatigue tiredness, lack of energy to do his routine activities. Unable to hold much down. Complaint of minimal productive cough but no chest pain or palpitations. No fever or chills reported. Timing/Duration: day(s) (4), gradual onset, worse Activities at Onset: rest Quality: cramping Abdominal Pain Onset Location: generalized abdomen Pain Radiation: no radiation Severity of Pain-Max: moderate Severity of Pain-Current: moderate Modifying Factors: Improves With: coughing Associated Symptoms: diarrhea, fatigue, nausea, vomiting - Review of Systems Constitutional: No Fever, No Chills Eyes: No Symptoms Ears, Nose, & Throat: No Symptoms Respiratory: No Cough, No Short Of Breath Cardiac: No Chest Pain, No Edema, No Syncope Abdominal/Gastrointestinal: Abdominal Pain, Nausea, Vomiting, Diarrhea, Appetite Changes Genitourinary Symptoms: No Dysuria Musculoskeletal: No Back Pain, No Neck Pain Skin: No Rash Neurological: No Dizziness, No Focal Weakness, No Sensory Changes Psychological: No Symptoms Endocrine: No Symptoms Hematologic/Lymphatic: No Symptoms Immunological/Allergic: No Symptoms Medications & Allergies Home Medications: Home Medication List Losartan/Hydrochlorothiazide [Losartan-Hctz 100-25 mg Tab] 1 each PO DAILY 02/01/20 [History Confirmed 01/07/22] Metoprolol Succinate 50 mg [Toprol Xl 50 MG] 25 mg DAILY 08/28/21 [History Confirmed 01/07/22] Rivaroxaban 10 mg Tablet [Xarelto 10 mg Tablet] 20 mg DAILY 08/28/21 [History Confirmed 01/07/22] Diltiazem HCl [Diltiazem 24Hr ER] 1 ea DAILY 01/06/22 [History Confirmed 01/07/22] Famotidine [Pepcid AC] 1 ea DAILY 01/06/22 [History Confirmed 01/07/22] Montelukast Sodium 10 mg [Singulair 10 MG] 1 ea DAILY 01/06/22 [History Confirmed 01/07/22] Allergies/Adverse Reactions: Allergies Allergy/AdvReac Type Severity Reaction Status Date / Time lisinopril AdvReac Intermediate Verified 01/06/22 16:40 gabapentin AdvReac Verified 01/06/22 16:40 naproxen AdvReac Verified 01/06/22 16:40 - Past Medical History Past Medical History: Yes Neurological History: No Pertinent History ENT History: No Pertinent History Cardiac History: Arrhythmia, High Cholesterol, Hypertension Respiratory History: COPD, Sleep Apnea Endocrine Medical History: Other Musculoskelatal History: Arthritis, Degenerative Disk Disease GI Medical History: No Pertinent History History: No Pertinent History Pyscho-Social History: Depression Male Reproductive Disorders: No Pertinent History Comment: stage 2 kidney disease - Past Surgical History Past Surgical History: Yes Neuro Surgical History: No Pertinent History Cardiac History: No Pertinent History Respiratory Surgery: No Pertinent History GI Surgical History: No Pertinent History Genitourinary Surgical Hx: No Pertinent History Musculskeletal Surgical Hx: Orthopedic Surgery Male Surgical History: No Pertinent History Other Surgical History: right and left shoulder surgery, right wrist surgery, right carpal tunnel - Social History Smoking Status: Current every day smoker How long have you smoked: 50 years Exposure to second hand smoke: Yes Alcohol: Rarely Drug Use: marijuana Significant Family History: no pertinent family hx - Physical Exam Vital Signs: Vital Signs - 24 hr Temp Pulse Resp BP Pulse Ox 01/07/22 07:19 97.8 F 75 22 131/64 96 01/07/22 04:00 98.5 F 76 18 122/65 95 01/07/22 00:00 97.7 F 91 H 20 129/62 84 L 01/06/22 23:30 86 18 93 L 01/06/22 22:48 97.4 F 103 H 20 132/67 94 L 01/06/22 22:04 91 H 119/51 95 01/06/22 21:09 97 H 132/56 97 01/06/22 20:49 95 01/06/22 20:21 91 H 143/57 95 01/06/22 19:35 89 137/56 94 L 01/06/22 16:33 97.5 F 107 H 20 170/88 95 General Appearance: no apparent distress, alert Neurologic Exam: alert, 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, cooperative, normal mood/affect, nml cerebellar function, nml station & gait, sensation nml, No motor deficits Eye Exam: PERRL/EOMI, eyes nml inspection Ears, Nose, Throat Exam: normal ENT inspection, TMs normal, pharynx normal, moist mucous membranes Neck Exam: normal inspection, non-tender, supple, full range of motion Respiratory Exam: diminished breath sounds, crackles/rales, rhonchi, No respiratory distress Cardiovascular Exam: regular rate/rhythm, normal heart sounds, normal peripheral pulses Gastrointestinal/Abdomen Exam: soft, normal bowel sounds, No tenderness, No mass Back Exam: normal inspection, normal range of motion, No CVA tenderness, No vertebral tenderness Extremity Exam: normal inspection, normal range of motion, pelvis stable Skin Exam: normal color, warm, dry, No rash Lymphatic Exam: No adenopathy Results - Labs Lab/Micro Results: Lab Results-Last 24 Hours 01/06/22 01/06/22 01/06/22 Range/Units 16:57 17:35 17:35 WBC 31.4 H* (4.0-10.5) K/mm3 RBC 5.32 (4.1-5.6) M/mm3 Hgb 17.4 (12.5-18.0) gm/dl Hct 50.1 H (42-50) % MCV 94.2 (78-100) fl MCH 32.7 H (26-32) pg MCHC 34.7 (32-36) g/dl RDW 13.7 (11.5-14.0) % Plt Count 243 (150-450) K/mm3 MPV 11.0 (7.5-11.0) fl Gran % (36.0-66.0) % Eos # (Auto) (0-0.5) Absolute Lymphs (auto) (1.0-4.6) Absolute Monos (auto) (0.0-1.3) Lymphocytes % (24.0-44.0) % Monocytes % (0.0-12.0) % Eosinophils % (0.00-5.0) % Basophils % (0.0-0.4) % Absolute Granulocytes (1.4-6.9) Segmented Neutrophils 89 H (36.-66.) % Band Neutrophils 5 H (0.0-2.0) % Lymphocytes (Manual) 2 L (24-44) % Monocytes (Manual) 3 (0.0-12.0) % Eosinophils (Manual) (0.00-3.0) % Basophils (Manual) 1 (0.0-1.0) % Basophils # (0-0.4) Toxic Granulation Platelet Estimate NORMAL (NORMAL) RBC Morphology NORMAL Polychromasia Smear Path Review Pending Sodium 136 L (137-145) mmol/L Potassium 3.6 (3.5-5.1) mmol/L Chloride 101 (98-107) mmol/L Carbon Dioxide 23 (22-30) mmol/L Anion Gap 15.8 H (5-15) MEQ/L BUN 10 (9-20) mg/dL Creatinine 1.05 (0.66-1.25) mg/dL Estimated GFR > 60.0 ML/MIN Glucose 127 H (74-106) mg/dL Lactic Acid 2.0 (0.4-2.0) Calcium 9.0 (8.4-10.2) mg/dL Total Bilirubin 1.70 H (0.2-1.3) mg/dL AST 15 L (17-59) U/L ALT 13 (0-50) U/L Alkaline Phosphatase 107 (38-126) U/L Troponin I (0.000-0.034) ng/mL Serum Total Protein 6.8 (6.3-8.2) g/dL Albumin 3.8 (3.5-5.0) g/dL Lipase 30 (23-300) U/L Urine Color (YELLOW) Urine Appearance (CLEAR) Urine pH (5-6) Ur Specific [place] (1.005-1.025) Urine Protein (Negative) Urine Ketones (NEGATIVE) Urine Blood (0-5) [place]/ul Urine Nitrite (NEGATIVE) Urine Bilirubin (NEGATIVE) Urine Urobilinogen (0-1) mg/dL Ur Leukocyte Esterase (NEGATIVE) Urine WBC (Auto) (0-5) /HPF Urine RBC (Auto) (0-2) /HPF U Epithel Cells (Auto) (FEW) /HPF Urine Bacteria (Auto) (NEGATIVE) /HPF Urine Mucus (Auto) (NEGATIVE) /HPF Urine Culture Reflexed (NO) Urine Glucose (NEGATIVE) mg/dL Influenza Type A Ag (NEGATIVE) Influenza Type B Ag (NEGATIVE) RSV (PCR) (Negative) SARS-CoV-2 (PCR) (NEGATIVE) SARS-CoV-2 Ag (Rapid) (NEGATIVE) 01/06/22 01/06/22 01/06/22 Range/Units 17:35 18:33 18:58 WBC (4.0-10.5) K/mm3 RBC (4.1-5.6) M/mm3 Hgb (12.5-18.0) gm/dl Hct (42-50) % MCV (78-100) fl MCH (26-32) pg MCHC (32-36) g/dl RDW (11.5-14.0) % Plt Count (150-450) K/mm3 MPV (7.5-11.0) fl Gran % (36.0-66.0) % Eos # (Auto) (0-0.5) Absolute Lymphs (auto) (1.0-4.6) Absolute Monos (auto) (0.0-1.3) Lymphocytes % (24.0-44.0) % Monocytes % (0.0-12.0) % Eosinophils % (0.00-5.0) % Basophils % (0.0-0.4) % Absolute Granulocytes (1.4-6.9) Segmented Neutrophils (36.-66.) % Band Neutrophils (0.0-2.0) % Lymphocytes (Manual) (24-44) % Monocytes (Manual) (0.0-12.0) % Eosinophils (Manual) (0.00-3.0) % Basophils (Manual) (0.0-1.0) % Basophils # (0-0.4) Toxic Granulation Platelet Estimate (NORMAL) RBC Morphology Polychromasia Smear Path Review Sodium (137-145) mmol/L Potassium (3.5-5.1) mmol/L Chloride (98-107) mmol/L Carbon Dioxide (22-30) mmol/L Anion Gap (5-15) MEQ/L BUN (9-20) mg/dL Creatinine (0.66-1.25) mg/dL Estimated GFR ML/MIN Glucose (74-106) mg/dL Lactic Acid (0.4-2.0) Calcium (8.4-10.2) mg/dL Total Bilirubin (0.2-1.3) mg/dL AST (17-59) U/L ALT (0-50) U/L Alkaline Phosphatase (38-126) U/L Troponin I < 0.012 (0.000-0.034) ng/mL Serum Total Protein (6.3-8.2) g/dL Albumin (3.5-5.0) g/dL Lipase (23-300) U/L Urine Color YELLOW (YELLOW) Urine Appearance CLEAR (CLEAR) Urine pH 6.0 (5-6) Ur Specific [place] 1.010 (1.005-1.025) Urine Protein NEGATIVE (Negative) Urine Ketones SMALL (NEGATIVE) Urine Blood NEGATIVE (0-5) [place]/ul Urine Nitrite NEGATIVE (NEGATIVE) Urine Bilirubin NEGATIVE (NEGATIVE) Urine Urobilinogen 4 (0-1) mg/dL Ur Leukocyte Esterase NEGATIVE (NEGATIVE) Urine WBC (Auto) NONE (0-5) /HPF Urine RBC (Auto) NONE (0-2) /HPF U Epithel Cells (Auto) NONE (FEW) /HPF Urine Bacteria (Auto) NONE (NEGATIVE) /HPF Urine Mucus (Auto) SLIGHT (NEGATIVE) /HPF Urine Culture Reflexed NO (NO) Urine Glucose NEGATIVE (NEGATIVE) mg/dL Influenza Type A Ag (NEGATIVE) Influenza Type B Ag (NEGATIVE) RSV (PCR) (Negative) SARS-CoV-2 (PCR) (NEGATIVE) SARS-CoV-2 Ag (Rapid) NEGATIVE (NEGATIVE) 01/06/22 01/06/22 01/06/22 Range/Units 19:10 19:47 19:56 WBC (4.0-10.5) K/mm3 RBC (4.1-5.6) M/mm3 Hgb (12.5-18.0) gm/dl Hct (42-50) % MCV (78-100) fl MCH (26-32) pg MCHC (32-36) g/dl RDW (11.5-14.0) % Plt Count (150-450) K/mm3 MPV (7.5-11.0) fl Gran % (36.0-66.0) % Eos # (Auto) (0-0.5) Absolute Lymphs (auto) (1.0-4.6) Absolute Monos (auto) (0.0-1.3) Lymphocytes % (24.0-44.0) % Monocytes % (0.0-12.0) % Eosinophils % (0.00-5.0) % Basophils % (0.0-0.4) % Absolute Granulocytes (1.4-6.9) Segmented Neutrophils (36.-66.) % Band Neutrophils (0.0-2.0) % Lymphocytes (Manual) (24-44) % Monocytes (Manual) (0.0-12.0) % Eosinophils (Manual) (0.00-3.0) % Basophils (Manual) (0.0-1.0) % Basophils # (0-0.4) Toxic Granulation Platelet Estimate (NORMAL) RBC Morphology Polychromasia Smear Path Review Sodium (137-145) mmol/L Potassium (3.5-5.1) mmol/L Chloride (98-107) mmol/L Carbon Dioxide (22-30) mmol/L Anion Gap (5-15) MEQ/L BUN (9-20) mg/dL Creatinine (0.66-1.25) mg/dL Estimated GFR ML/MIN Glucose (74-106) mg/dL Lactic Acid 1.1 (0.4-2.0) Calcium (8.4-10.2) mg/dL Total Bilirubin (0.2-1.3) mg/dL AST (17-59) U/L ALT (0-50) U/L Alkaline Phosphatase (38-126) U/L Troponin I < 0.012 (0.000-0.034) ng/mL Serum Total Protein (6.3-8.2) g/dL Albumin (3.5-5.0) g/dL Lipase (23-300) U/L Urine Color (YELLOW) Urine Appearance (CLEAR) Urine pH (5-6) Ur Specific [place] (1.005-1.025) Urine Protein (Negative) Urine Ketones (NEGATIVE) Urine Blood (0-5) [place]/ul Urine Nitrite (NEGATIVE) Urine Bilirubin (NEGATIVE) Urine Urobilinogen (0-1) mg/dL Ur Leukocyte Esterase (NEGATIVE) Urine WBC (Auto) (0-5) /HPF Urine RBC (Auto) (0-2) /HPF U Epithel Cells (Auto) (FEW) /HPF Urine Bacteria (Auto) (NEGATIVE) /HPF Urine Mucus (Auto) (NEGATIVE) /HPF Urine Culture Reflexed (NO) Urine Glucose (NEGATIVE) mg/dL Influenza Type A Ag NEGATIVE (NEGATIVE) Influenza Type B Ag NEGATIVE (NEGATIVE) RSV (PCR) NEGATIVE (Negative) SARS-CoV-2 (PCR) NEGATIVE (NEGATIVE) SARS-CoV-2 Ag (Rapid) (NEGATIVE) 01/07/22 01/07/22 01/07/22 Range/Units 04:35 04:35 04:35 WBC 30.8 H* (4.0-10.5) K/mm3 RBC 4.83 (4.1-5.6) M/mm3 Hgb 15.9 (12.5-18.0) gm/dl Hct 46.9 (42-50) % MCV 97.1 (78-100) fl MCH 32.9 H (26-32) pg MCHC 33.9 (32-36) g/dl RDW 14.1 H (11.5-14.0) % Plt Count 182 (150-450) K/mm3 MPV 11.0 (7.5-11.0) fl Gran % 85.4 H (36.0-66.0) % Eos # (Auto) 0.05 (0-0.5) Absolute Lymphs (auto) 1.33 (1.0-4.6) Absolute Monos (auto) 3.08 H (0.0-1.3) Lymphocytes % 4.3 L (24.0-44.0) % Monocytes % 10.0 (0.0-12.0) % Eosinophils % 0.2 (0.00-5.0) % Basophils % 0.1 (0.0-0.4) % Absolute Granulocytes 26.32 H (1.4-6.9) Segmented Neutrophils 75 H (36.-66.) % Band Neutrophils 12 H (0.0-2.0) % Lymphocytes (Manual) 4 L (24-44) % Monocytes (Manual) 8 (0.0-12.0) % Eosinophils (Manual) 1 (0.00-3.0) % Basophils (Manual) (0.0-1.0) % Basophils # 0.03 (0-0.4) Toxic Granulation 2+ Platelet Estimate NORMAL (NORMAL) RBC Morphology ABNORMAL Polychromasia 1+ Smear Path Review Sodium 135 L (137-145) mmol/L Potassium 3.9 (3.5-5.1) mmol/L Chloride 105 (98-107) mmol/L Carbon Dioxide 24 (22-30) mmol/L Anion Gap 10.8 (5-15) MEQ/L BUN 11 (9-20) mg/dL Creatinine 1.05 (0.66-1.25) mg/dL Estimated GFR > 60.0 ML/MIN Glucose 111 H (74-106) mg/dL Lactic Acid (0.4-2.0) Calcium 8.4 (8.4-10.2) mg/dL Total Bilirubin 2.40 H (0.2-1.3) mg/dL AST 13 L (17-59) U/L ALT 11 (0-50) U/L Alkaline Phosphatase 77 (38-126) U/L Troponin I < 0.012 (0.000-0.034) ng/mL Serum Total Protein 6.5 (6.3-8.2) g/dL Albumin 3.4 L (3.5-5.0) g/dL Lipase (23-300) U/L Urine Color (YELLOW) Urine Appearance (CLEAR) Urine pH (5-6) Ur Specific [place] (1.005-1.025) Urine Protein (Negative) Urine Ketones (NEGATIVE) Urine Blood (0-5) [place]/ul Urine Nitrite (NEGATIVE) Urine Bilirubin (NEGATIVE) Urine Urobilinogen (0-1) mg/dL Ur Leukocyte Esterase (NEGATIVE) Urine WBC (Auto) (0-5) /HPF Urine RBC (Auto) (0-2) /HPF U Epithel Cells (Auto) (FEW) /HPF Urine Bacteria (Auto) (NEGATIVE) /HPF Urine Mucus (Auto) (NEGATIVE) /HPF Urine Culture Reflexed (NO) Urine Glucose (NEGATIVE) mg/dL Influenza Type A Ag (NEGATIVE) Influenza Type B Ag (NEGATIVE) RSV (PCR) (Negative) SARS-CoV-2 (PCR) (NEGATIVE) SARS-CoV-2 Ag (Rapid) (NEGATIVE) - Radiology Impressions Radiology Exams & Impressions: Radiology Procedures Category Date Time Status ABDOMEN AND PELVIS W/0 CONTRAS [CT] Stat Exams 01/06/22 16:57 Completed CHEST WITHOUT CONTRAST [CT] Stat Exams 01/06/22 16:58 Completed - Other Procedures and Tests Respiratory Therapy 01/07/22 00:12 BiPap/CPAP ROUTINE Respiratory Therapy Assessment DAILY Assessment/Plan (1) Gastroenteritis Current Visit: Yes Status: Acute Code(s): K52.9 - NONINFECTIVE GASTROENTERITIS AND COLITIS, UNSPECIFIED (2) Pneumonia Current Visit: Yes Status: Acute Code(s): J18.9 - PNEUMONIA, UNSPECIFIED ORGANISM
[2022-01-07] MEDS: PROTONIX 40 MG IV IV SCH (09:18)
[2022-01-07] MEDS: Sodium Chloride 0.9% 1000 ML 1,000 ML IV SCH ×2 (10:05→21:02)
[2022-01-07] MEDS: Advair Hfa 115/21 Common canister IH SCH ×2 (10:27→19:00)
[2022-01-07] MEDS: Cozaar 50 MG PO SCH (11:41)
[2022-01-07] MEDS: Pepcid 20 MG PO SCH (11:41)
[2022-01-07] MEDS: XARELTO 10 MG TABLET PO SCH (11:41)
[2022-01-07] MEDS: hydroDIURIL 25 MG PO SCH (11:41)
[2022-01-07] MEDS: Toprol-Xl 25MG Tablets PO SCH (11:41)
[2022-01-07] MEDS: Singulair 10 MG PO SCH (11:41)
[2022-01-07] MEDS: Cardizem CD 120 MG PO SCH (11:42)
[2022-01-07] MEDS: Levofloxacin 500MG/100ML D5W 500 MG/100 ML BAG IV SCH (21:02)
[2022-01-08] MEDS: MORPHINE SULFATE 2 MG INJ IV PRN ×5 (00:57→21:36)
[2022-01-08] MEDS: Zosyn 3.375 GM Vial 3.375 GM in Sodium Chloride 100ML MINI-BAG PLUS 100 ML IV SCH ×4 (01:04→17:01)
[2022-01-08] MEDS: DUONEB 0.5-3 MG/3 ml Neb IH SCH ×4 (03:17→18:41)
[2022-01-08] MEDS: Advair Hfa 115/21 Common canister IH SCH ×2 (07:00→18:45)
[2022-01-08] MEDS: Sodium Chloride 0.9% 1000 ML 1,000 ML IV SCH ×2 (07:49→17:04)
[2022-01-08] MEDS: TYLENOL 325 MG PO PRN (07:50)
[2022-01-08 08:05] LABS: Hematocrit 48.7 % (42-50); Hemoglobin 16.5 gm/dl (12.5-18.0); Mean Cell Volume 95.3 fl (78-100); Mean Corpuscular Hemoglobin 32.3 pg (26-32); Mean Corpuscular Hgb Concent. 33.9 g/dl (32-36); Mean Platelet Volume 10.4 fl (7.5-11.0); Platelet Count 232 K/mm3 (150-450); Red Blood Count 5.11 M/mm3 (4.1-5.6)
[2022-01-08 08:06] LABS: White Blood Count 27.7 K/mm3 (4.0-10.5)
[2022-01-08 08:23] LABS: ALBUMIN 3.5 g/dL (3.5-5.0); ALKALINE PHOSPHATASE 88 U/L (38-126); ANION GAP 13.4 MEQ/L (5-15); BLOOD UREA NITROGEN 10 mg/dL (9-20); CHLORIDE 102 mmol/L (98-107); Carbon Dioxide 25 mmol/L (22-30); Creatinine 1 1.11 mg/dL (0.66-1.25); EST GLOMERULAR FILTRATION RATE > 60.0 ML/MIN; Glucose 146 mg/dL (74-106); Potassium 3.5 mmol/L (3.5-5.1); SGOT/AST 13 U/L (17-59); SGPT/ALT 13 U/L (0-50); SODIUM 137 mmol/L (137-145)
[2022-01-08] MEDS: Singulair 10 MG PO SCH (08:28)
[2022-01-08] MEDS: Cardizem CD 120 MG PO SCH (08:28)
[2022-01-08] MEDS: XARELTO 10 MG TABLET PO SCH (08:29)
[2022-01-08] MEDS: Cozaar 50 MG PO SCH (08:29)
[2022-01-08] MEDS: Toprol-Xl 25MG Tablets PO SCH (08:29)
[2022-01-08] MEDS: Pepcid 20 MG PO SCH (08:30)
[2022-01-08] MEDS: hydroDIURIL 25 MG PO SCH (08:30)
[2022-01-08] MEDS: PROTONIX 40 MG IV IV SCH (08:31)
[2022-01-08] MEDS ORDERED: Pepcid 20 MG PO SCH (10:00)
[2022-01-08] MEDS ORDERED: Toprol Xl 50 MG PO SCH (10:00)
[2022-01-08] MEDS ORDERED: XARELTO 10 MG TABLET PO SCH (10:00)
[2022-01-08] MEDS ORDERED: NON-FORMULARY ITEM (Losartan/Hydrochlorothiazide [Losartan-Hctz 100-25 Mg Tab] 1 EACH Tabl PO SCH (10:00)
[2022-01-08] MEDS ORDERED: DILTIAZEM 240 MG PO SCH (10:00)
[2022-01-08 10:17] LABS: Eosinophil 1 % (0.00-3.0); Lymphocytes 14 % (24-44); Monocyte 2 % (0.0-12.0); Neutrophils 83 % (36.-66.); Platelet Estimate NORMAL (NORMAL); Total Cells Counted 100; Toxic Granulation 1+
--- NOTE | 2022-01-08 13:18 | PCM.NOTE ---
Date and Time: 01/08/22 1315 Subjective Assessment: still very short of breath - Review of Systems Constitutional: No Fever, No Chills Eyes: No Symptoms Ears, Nose, & Throat: No Symptoms Respiratory: Orthopnea, Short Of Breath, Wheezing, No Cough Cardiac: No Chest Pain, No Edema, No Syncope Abdominal/Gastrointestinal: No Abdominal Pain, No Nausea, No Vomiting, No Diarrhea Genitourinary Symptoms: No Dysuria Musculoskeletal: No Back Pain, No Neck Pain Skin: No Rash Neurological: No Dizziness, No Focal Weakness, No Sensory Changes Psychological: No Symptoms Endocrine: No Symptoms Hematologic/Lymphatic: No Symptoms Immunological/Allergic: No Symptoms Objective Exam General Appearance: mild distress, alert Neurologic Exam: alert, 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, cooperative, normal mood/affect, sensation nml, No motor deficits Skin Exam: normal color, warm, dry Eye Exam: PERRL, EOMI, eyes nml inspection Ears, Nose, Throat Exam: normal ENT inspection, pharynx normal, moist mucous membranes Neck Exam: normal inspection, non-tender, supple, full range of motion Respiratory Exam: diminished breath sounds, crackles/rales, rhonchi, wheezing, No respiratory distress Cardiovascular Exam: regular rate/rhythm, normal heart sounds Gastrointestinal/Abdomen Exam: soft, No tenderness, No mass Extremity Exam: normal inspection, normal range of motion Back Exam: normal inspection, normal range of motion, No CVA tenderness, No vertebral tenderness Male Genitalia Exam: deferred Rectal Exam: deferred OBJECTIVE DATA Vital Signs: Vital Signs - 24 hr Temp Pulse Resp BP BP Pulse Ox 01/08/22 12:00 98.4 F 90 22 117/58 95 01/08/22 08:00 98.4 F 155 H 15 115/81 95 01/08/22 07:00 86 18 95 01/08/22 04:19 97.6 F 93 H 18 103/51 98 01/07/22 23:52 97.4 F 77 20 119/68 96 01/07/22 19:57 97.7 F 88 16 127/59 95 01/07/22 19:00 74 20 93 L 01/07/22 16:00 97.8 F 87 20 119/56 95 Pain Assessment - Last Documented Pain Intensity 6 Pain Scale Used 0-10 Pain Scale Intake and Output: Intake & Output 01/06/22 01/07/22 01/08/22 01/09/22 11:59 11:59 11:59 11:59 Intake Total 600 4500 260 Output Total 200 3175 200 Balance 400 1325 60 Weight 90.2 kg 92.2 kg Lab Results: Lab Results-Last 24 Hours 01/08/22 01/08/22 Range/Units 07:51 07:51 WBC 27.7 H* (4.0-10.5) K/mm3 RBC 5.11 (4.1-5.6) M/mm3 Hgb 16.5 (12.5-18.0) gm/dl Hct 48.7 (42-50) % MCV 95.3 (78-100) fl MCH 32.3 H (26-32) pg MCHC 33.9 (32-36) g/dl RDW 14.0 (11.5-14.0) % Plt Count 232 (150-450) K/mm3 MPV 10.4 (7.5-11.0) fl Segmented Neutrophils 83 H (36.-66.) % Lymphocytes (Manual) 14 L (24-44) % Monocytes (Manual) 2 (0.0-12.0) % Eosinophils (Manual) 1 (0.00-3.0) % Toxic Granulation 1+ Platelet Estimate NORMAL (NORMAL) RBC Morphology NORMAL Sodium 137 (137-145) mmol/L Potassium 3.5 (3.5-5.1) mmol/L Chloride 102 (98-107) mmol/L Carbon Dioxide 25 (22-30) mmol/L Anion Gap 13.4 (5-15) MEQ/L BUN 10 (9-20) mg/dL Creatinine 1.11 (0.66-1.25) mg/dL Estimated GFR > 60.0 ML/MIN Glucose 146 H (74-106) mg/dL Calcium 9.0 (8.4-10.2) mg/dL Total Bilirubin 2.30 H (0.2-1.3) mg/dL AST 13 L (17-59) U/L ALT 13 (0-50) U/L Alkaline Phosphatase 88 (38-126) U/L Serum Total Protein 7.0 (6.3-8.2) g/dL Albumin 3.5 (3.5-5.0) g/dL Radiology Exams: Radiology Procedures Category Date Time Status ABDOMEN AND PELVIS W/0 CONTRAS [CT] Stat Exams 01/06/22 16:57 Completed CHEST WITHOUT CONTRAST [CT] Stat Exams 01/06/22 16:[address]/CHEST WITHOUT CONTRAST Indication: Cough and short of breath. Multiple contiguous axial images obtained through the chest without contrast. Comparison: November 06, 2019. New posterior right upper lobe consolidating airspace disease. Medial left lower lobe demonstrates new 3 cm irregular noncalcified subpleural masslike opacity with small cavitation. Partial differential includes bronchogenic carcinoma, metastasis, tuberculosis, and cavitating pneumonia. Elsewhere there remains diffuse centrilobular pulmonary emphysema with minimal scattered fibrosis/scarring. No effusion or pneumothorax. Heart not enlarged. Aorta is again minimally arteriosclerotic without aneurysm. Stable small right hilar calcified nodes. No pathologic mediastinal lymphadenopathy. Bony thorax intact again with mild degenerative changes throughout the spine. CT abdomen/pelvis reported separately. Impression: 1. New right upper lobe airspace disease. 2. New irregular left lower lobe cavitary mass. Partial differential offered above. 3. Again pulmonary emphysema and old granulomatous disease. Assessment/Plan (1) Gastroenteritis Current Visit: Yes Status: Resolved Code(s): K52.9 - NONINFECTIVE GASTROENTERITIS AND COLITIS, UNSPECIFIED (2) Pneumonia Current Visit: Yes Status: Acute Qualifiers: Pneumonia type: due to unspecified organism Laterality: bilateral Lung location: lower lobe of lung Qualified Code(s): J18.9 - Pneumonia, unspecified organism Code(s): J18.9 - PNEUMONIA, UNSPECIFIED ORGANISM (3) Incidental pulmonary nodule, greater than or equal to 8mm Current Visit: Yes Status: Acute Code(s): R91.1 - SOLITARY PULMONARY NODULE
--- NOTE | 2022-01-08 14:22 | CONS ---
CONSULT DATE: 01/08/2022 HISTORY: Pablo Dietrich is a 66-year-old male, with history of chronic obstructive pulmonary disease, well known to me, who has been hospitalized with complaints of nausea, vomiting that started two days ago. The patient reportedly was doing well and suddenly developed chills with fever, nausea and vomiting. He vomited a few times prior to being hospitalized. The patient had a CT chest performed that showed extensive area of pneumonia involving posterior sub-segmental right upper lobe. In addition, the superior segment of left lower lobe appears to have a cavitating mass lesion, both of these are concerning for possible infective etiology although malignancy cannot be excluded particularly in left lower lobe. At the time of my evaluation, the patient is awake, comfortable and able to carry out a conversation. His GI symptoms have resolved. He is able to keep food down without much difficulty. PAST MEDICAL HISTORY: Positive for history of hypertension, history of hyperlipidemia and atrial fibrillation for which he is on anticoagulation. PAST SURGICAL HISTORY: No recent surgery. PERSONAL AND SOCIAL HISTORY: The patient is a smoker. MEDICATIONS: Home and current medications are reviewed. ALLERGIES: LISINOPRIL. GABAPENTIN. NAPROXEN. PHYSICAL EXAMINATION: This is a middle-aged male who appears comfortable, able to carry out a conversation. Vital signs noted. HEENT: Normocephalic. Oral exam unremarkable. CVS: First and second heart sounds are normal, regular, rhythmic. RESPIRATORY: Shows diminished breath sounds, fairly clear. ABDOMEN: Soft. EXTREMITIES: No edema is noted. LABORATORY DATA AND TESTS: White count is 27.7 which is decreased from 31.4. Hemoglobin 16.5, hemoglobin 48.7 and PLT count 232,000. Sodium 137, potassium 3.5, chloride 102, bicarb 25, glucose 146, BUN 10, creatinine 1.1. Cultures are negative to date. CT chest was reviewed. COVID test along with influenza and respiratory syncytial virus were negative. ASSESSMENT: This is a 66-year-old male admitted with: 1) Right upper lobe and left lower lobe cavitating lung lesions suggestive of likely aspiration pneumonia. 2) Chronic obstructive pulmonary disease with mild exacerbation. 3) Nicotine addiction. 4) Comorbidities listed above. RECOMMENDATIONS: 1) The patient appears to be clinically doing better. I explained to him that at this point I would recommend completion of antibiotic therapy followed by a repeat CT scan. If the above changes fail to resolve, additional work up including PET scan, plus/minus biopsy would be warranted. 2) Continue bronchodilators. 3) Monitor white count until normalization. 4) I have advised him to be switched likely to Avelox for anaerobic coverage 400 mg p.o. once daily for ten days upon discharge, to be followed by outpatient CT scan and follow up with me in about three weeks. At any point if the patient's symptoms worsen or any other symptoms develop, he has my office number and should be able to contact me. Thank you for allowing me to participate in the care of Pablo Dietrich.
[2022-01-08] MEDS ORDERED: NICODERM CQ 14 MG TOP SCH (19:45)
[2022-01-08] MEDS: Levofloxacin 500MG/100ML D5W 500 MG/100 ML BAG IV SCH (21:36)
[2022-01-09] MEDS: Zosyn 3.375 GM Vial 3.375 GM in Sodium Chloride 100ML MINI-BAG PLUS 100 ML IV SCH ×4 (01:17→19:17)
[2022-01-09] MEDS: MORPHINE SULFATE 2 MG INJ IV PRN ×4 (01:51→19:56)
[2022-01-09] MEDS: DUONEB 0.5-3 MG/3 ml Neb IH SCH ×4 (02:14→18:35)
[2022-01-09 05:21] LABS: Hematocrit 43.6 % (42-50); Hemoglobin 15.1 gm/dl (12.5-18.0); Mean Cell Volume 94.2 fl (78-100); Mean Corpuscular Hemoglobin 32.6 pg (26-32); Mean Corpuscular Hgb Concent. 34.6 g/dl (32-36); Mean Platelet Volume 10.8 fl (7.5-11.0); Platelet Count 247 K/mm3 (150-450); Red Blood Count 4.63 M/mm3 (4.1-5.6); Red Cell Distribution Width 13.6 % (11.5-14.0); White Blood Count 21.2 K/mm3 (4.0-10.5)
[2022-01-09 05:49] LABS: ALBUMIN 3.1 g/dL (3.5-5.0); ALKALINE PHOSPHATASE 79 U/L (38-126); BLOOD UREA NITROGEN 11 mg/dL (9-20); CHLORIDE 101 mmol/L (98-107); Calcium 8.5 mg/dL (8.4-10.2); Carbon Dioxide 26 mmol/L (22-30); Creatinine 1 1.05 mg/dL (0.66-1.25); EST GLOMERULAR FILTRATION RATE > 60.0 ML/MIN; Glucose 145 mg/dL (74-106); SGOT/AST 19 U/L (17-59); SGPT/ALT 15 U/L (0-50); SODIUM 135 mmol/L (137-145); Total Protein 6.5 g/dL (6.3-8.2)
[2022-01-09 05:58] LABS: Potassium 2.8 mmol/L (3.5-5.1)
[2022-01-09] MEDS: Sodium Chloride 0.9% 1000 ML 1,000 ML IV SCH ×2 (06:06→18:08)
[2022-01-09] MEDS: Advair Hfa 115/21 Common canister IH SCH ×2 (06:42→18:35)
[2022-01-09 08:19] LABS: Eosinophil 2 % (0.00-3.0); Lymphocytes 5 % (24-44); Monocyte 3 % (0.0-12.0); Neutrophils 90 % (36.-66.); Platelet Estimate NORMAL (NORMAL); Total Cells Counted 100; Toxic Granulation 1+
[2022-01-09] MEDS: POTASSIUM CHLORIDE 20 mEq IN WATER 100ML 20 MEQ/100 ML BAG IV SCH ×2 (09:03→11:43)
[2022-01-09] MEDS: Cardizem CD 120 MG PO SCH (10:56)
[2022-01-09] MEDS: Toprol-Xl 25MG Tablets PO SCH (10:56)
[2022-01-09] MEDS: Singulair 10 MG PO SCH (10:56)
[2022-01-09] MEDS: XARELTO 10 MG TABLET PO SCH (10:56)
[2022-01-09] MEDS: hydroDIURIL 25 MG PO SCH (10:56)
[2022-01-09] MEDS: Cozaar 50 MG PO SCH (10:56)
[2022-01-09] MEDS: Pepcid 20 MG PO SCH (10:56)
[2022-01-09] MEDS: NICODERM CQ 14 MG TOP SCH (10:57)
[2022-01-09] MEDS: PROTONIX 40 MG IV IV SCH (10:57)
--- NOTE | 2022-01-09 12:28 | PCM.NOTE ---
Date and Time: 01/09/22 1223 Subjective Assessment: doing ok. Dr Nahid galicia consult appreciated - Review of Systems Constitutional: No Fever, No Chills Eyes: No Symptoms Ears, Nose, & Throat: No Symptoms Respiratory: Cough, Orthopnea, Short Of Breath, Wheezing Cardiac: No Chest Pain, No Edema, No Syncope Abdominal/Gastrointestinal: No Abdominal Pain, No Nausea, No Vomiting, No Diarrhea Genitourinary Symptoms: No Dysuria Musculoskeletal: No Back Pain, No Neck Pain Skin: No Rash Neurological: No Dizziness, No Focal Weakness, No Sensory Changes Psychological: No Symptoms Endocrine: No Symptoms Hematologic/Lymphatic: No Symptoms Immunological/Allergic: No Symptoms Objective Exam General Appearance: no apparent distress, alert Neurologic Exam: alert, 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, cooperative, normal mood/affect, nml cerebellar function, sensation nml, No motor deficits Skin Exam: normal color, warm, dry Eye Exam: PERRL, EOMI, eyes nml inspection Ears, Nose, Throat Exam: normal ENT inspection, pharynx normal, moist mucous membranes Neck Exam: normal inspection, non-tender, supple, full range of motion Respiratory Exam: normal breath sounds, crackles/rales, rhonchi, wheezing, No respiratory distress Cardiovascular Exam: regular rate/rhythm, normal heart sounds Gastrointestinal/Abdomen Exam: soft, No tenderness, No mass Extremity Exam: normal inspection, normal range of motion Back Exam: normal inspection, normal range of motion, No CVA tenderness, No vertebral tenderness Male Genitalia Exam: deferred Rectal Exam: deferred OBJECTIVE DATA Vital Signs: Vital Signs - 24 hr Temp Pulse Resp BP Pulse Ox 01/09/22 07:19 98.1 F 86 16 149/91 95 01/09/22 06:44 102 H 22 94 L 01/09/22 04:53 96.4 F 113 H 18 103/54 94 L 01/09/22 02:17 96 H 18 93 L 01/08/22 23:54 98.4 F 104 H 18 123/59 95 01/08/22 19:47 98.2 F 102 H 18 136/63 92 L 01/08/22 18:45 102 H 18 92 L 01/08/22 16:00 97.9 F 91 H 16 129/59 95 01/08/22 13:25 89 20 94 L Pain Assessment - Last Documented Pain Intensity 7 Pain Scale Used 0-10 Pain Scale Intake and Output: Intake & Output 01/07/22 01/08/22 01/09/22 01/10/22 11:59 11:59 11:59 11:59 Intake Total 600 4500 4431 Output Total 200 3175 2300 Balance 400 1325 2131 Weight 90.2 kg 92.2 kg 92.2 kg Lab Results: Lab Results-Last 24 Hours 01/09/22 01/09/22 01/09/22 Range/Units 04:35 04:35 04:35 WBC 21.2 H (4.0-10.5) K/mm3 RBC 4.63 (4.1-5.6) M/mm3 Hgb 15.1 (12.5-18.0) gm/dl Hct 43.6 (42-50) % MCV 94.2 (78-100) fl MCH 32.6 H (26-32) pg MCHC 34.6 (32-36) g/dl RDW 13.6 (11.5-14.0) % Plt Count 247 (150-450) K/mm3 MPV 10.8 (7.5-11.0) fl Segmented Neutrophils 90 H (36.-66.) % Lymphocytes (Manual) 5 L (24-44) % Monocytes (Manual) 3 (0.0-12.0) % Eosinophils (Manual) 2 (0.00-3.0) % Toxic Granulation 1+ Platelet Estimate NORMAL (NORMAL) RBC Morphology NORMAL Sodium 135 L (137-145) mmol/L Potassium 2.8 L* (3.5-5.1) mmol/L Chloride 101 (98-107) mmol/L Carbon Dioxide 26 (22-30) mmol/L Anion Gap 11.0 (5-15) MEQ/L BUN 11 (9-20) mg/dL Creatinine 1.05 (0.66-1.25) mg/dL Estimated GFR > 60.0 ML/MIN Glucose 145 H (74-106) mg/dL Calcium 8.5 (8.4-10.2) mg/dL Magnesium 1.8 (1.6-2.3) mg/dL Total Bilirubin 1.50 H (0.2-1.3) mg/dL AST 19 (17-59) U/L ALT 15 (0-50) U/L Alkaline Phosphatase 79 (38-126) U/L Serum Total Protein 6.5 (6.3-8.2) g/dL Albumin 3.1 L (3.5-5.0) g/dL Multi-Disciplinary Progress Notes: Multi-Disciplinary Progress Notes 01/09/22 11:47 Case Management Note by Sheridan Gregory REVIEWED CHART- NO CHANGE IN DC PLANS AT THIS TIME Initialized on 01/09/22 11:47 - END OF NOTE Assessment/Plan (1) Hypokalemia due to excessive gastrointestinal loss of potassium Current Visit: Yes Status: Acute Assessment & Plan: K replacement Code(s): E87.6 - HYPOKALEMIA (2) Pneumonia Current Visit: Yes Status: Acute Qualifiers: Pneumonia type: due to unspecified organism Laterality: bilateral Lung location: lower lobe of lung Qualified Code(s): J18.9 - Pneumonia, unspecified organism Assessment & Plan: Chief Complaint Diagnosis c/o abdominal pain, nausea, vomiting for 1-2 days Allergies Allergy/AdvReac Type Severity Reaction Status Date / Time lisinopril AdvReac Intermediate Verified 01/06/22 16:40 gabapentin AdvReac Verified 01/06/22 16:40 naproxen AdvReac Verified 01/06/22 16:40 Vital Signs (Last 24 hours) Temp Pulse Resp BP Pulse Ox 01/09/22 07:19 98.1 F 86 16 149/91 95 01/09/22 06:44 102 H 22 94 L 01/09/22 04:53 96.4 F 113 H 18 103/54 94 L 01/09/22 02:17 96 H 18 93 L 01/08/22 23:54 98.4 F 104 H 18 123/59 95 01/08/22 19:47 98.2 F 102 H 18 136/63 92 L 01/08/22 18:45 102 H 18 92 L 01/08/22 16:00 97.9 F 91 H 16 129/59 95 01/08/22 13:25 89 20 94 L Home Medications Medication Instructions Recorded Confirmed Last Taken Type Diltiazem HCl [Diltiazem 24Hr ER] 1 ea DAILY 01/06/22 01/07/22 01/06/22 History Famotidine [Pepcid AC] 1 ea DAILY 01/06/22 01/07/22 01/06/22 History Montelukast Sodium 10 mg 1 ea DAILY 01/06/22 01/07/22 01/06/22 History [Singulair 10 MG] Current Medications Generic Name Dose Route Start Last Admin Trade Name Freq PRN Reason Stop Dose Admin Acetaminophen 650 mg 01/06/22 22:30 01/08/22 07:50 Acetaminophen 325 Mg Tablet PO 02/05/22 22:29 650 mg Q4H PRN PRN Administration PAIN AND/OR FEVER Albuterol/Ipratropium 3 ml 01/07/22 01:00 01/09/22 06:41 Ipratropium/Albuterol Sulfate 3 Ml Ampul.Neb IH 02/06/22 00:59 3 ml Q6HRT JOSE RAUL Administration Diltiazem HCl 240 mg 01/07/22 12:00 01/09/22 10:56 Diltiazem Hcl 120 Mg Cap.Sr.24h PO 02/06/22 11:59 240 mg DAILY JOSE RAUL Administration Famotidine 20 mg 01/07/22 12:00 01/09/22 10:56 Famotidine 20 Mg Tablet PO 02/06/22 11:59 20 mg DAILY JOSE RAUL Administration Hydrochlorothiazide 25 mg 01/07/22 12:00 01/09/22 10:56 Hydrochlorothiazide 25 Mg Tablet PO 02/06/22 11:59 25 mg DAILY JOSE RAUL Administration Sodium Chloride 1,000 mls @ 100 mls/hr 01/06/22 22:30 01/09/22 06:06 Sodium Chloride 0.9% 1000 Ml IV 02/05/22 22:29 100 mls/hr .Q10H JOSE RAUL Administration Levofloxacin/Dextrose 500 mg in 100 mls @ 100 mls/hr 01/07/22 22:00 01/08/22 21:36 Levofloxacin 500mg/100ml D5w IV 02/06/22 21:59 100 mls/hr HS JOSE RAUL Administration Piperacillin Sod/Tazobactam 100 mls @ 200 mls/hr 01/07/22 00:00 01/09/22 06:06 Sod 3.375 gm/ Sodium Chloride IV 01/11/22 00:00 200 mls/hr Q6HT JOSE RAUL Administration Losartan Potassium 100 mg 01/07/22 12:00 01/09/22 10:56 Losartan Potassium 50 Mg Tablet PO 02/06/22 11:59 100 mg DAILY JOSE RAUL Administration Metoprolol Succinate 25 mg 01/07/22 12:00 01/09/22 10:56 Metoprolol Succinate 25 Mg Xl Tab PO 02/06/22 11:59 25 mg DAILY JOSE RAUL Administration Montelukast Sodium 10 mg 01/07/22 12:00 01/09/22 10:56 Montelukast Sodium 10 Mg Tablet PO 02/06/22 11:59 10 mg DAILY JOSE RAUL Administration Morphine Sulfate 2 mg 01/06/22 22:30 01/09/22 11:43 Morphine Sulfate 2 Mg/Ml Inj IV 01/11/22 22:29 2 mg Q4H PRN PRN Administration PAIN Nicotine 14 mg 01/09/22 10:00 01/09/22 10:57 Nicotine 14 Mg/Patch Patch TOP 02/07/22 19:44 14 mg Q24H10 JOSE RAUL Administration Pantoprazole Sodium 40 mg 01/07/22 10:00 01/09/22 10:57 Pantoprazole 40 Mg Vial IV 02/06/22 09:59 40 mg Q24H10 JOSE RAUL Administration Rivaroxaban 20 mg 01/07/22 12:00 01/09/22 10:56 Rivaroxaban 10 Mg Tablet PO 02/06/22 11:59 20 mg DAILY JOSE RAUL Administration Fluticasone/Salmeterol 2 puff 01/07/22 07:00 01/09/22 06:42 Fluticasone/Salmeterol 115/21 - 120 Puff Common Canister IH 02/06/22 06:59 2 puff BIDRT JOSE RAUL Administration Discontinued Medications Generic Name Dose Route Start Last Admin Trade Name Freq PRN Reason Stop Dose Admin Sodium Chloride 1,000 mls @ 999 mls/hr 01/06/22 16:57 01/06/22 19:11 Sodium Chloride 0.9% 1000 Ml IV 01/06/22 17:57 Infused .Q1H1M STA Infusion Sodium Chloride Confirm 01/06/22 17:19 Sodium Chloride 0.9% 1000 Ml Administered 01/06/22 17:20 Dose 1,000 mls @ ud .ROUTE .STK-MED ONE Levofloxacin/Dextrose 750 mg in 150 mls @ 100 mls/hr 01/06/22 19:13 01/06/22 21:03 Levofloxacin 750mg/150ml D5w IV 01/06/22 20:42 100 mls/hr STAT STA 100 mls/hr Administration Piperacillin Sod/Tazobactam 100 mls @ 200 mls/hr 01/06/22 19:13 01/06/22 19:45 Sod 3.375 gm/ Sodium Chloride IV 01/06/22 19:42 200 mls/hr STAT ONE Administration Sodium Chloride Confirm 01/06/22 19:44 Sodium Chloride 100ml Mini-Bag Plus Administered 01/06/22 19:45 Dose 100 mls @ ud IV .STK-MED ONE Levofloxacin/Dextrose Confirm 01/06/22 21:00 Levofloxacin 750mg/150ml D5w Administered 01/06/22 21:01 Dose 750 mg in 150 mls @ ud IV .STK-MED ONE Sodium Chloride Confirm 01/07/22 00:39 Sodium Chloride 100ml Mini-Bag Plus Administered 01/07/22 00:40 Dose 100 mls @ ud IV .STK-MED ONE Sodium Chloride Confirm 01/07/22 06:30 Sodium Chloride 100ml Mini-Bag Plus Administered 01/07/22 06:31 Dose 100 mls @ ud IV .STK-MED ONE Potassium Chloride 20 meq in 100 mls @ 50 mls/hr 01/09/22 07:00 01/09/22 11:43 Potassium Chloride 20 Meq In Water 100ml IV 01/09/22 10:59 50 mls/hr Q2H JOSE RAUL Administration Morphine Sulfate 2 mg 01/06/22 16:57 01/06/22 17:38 Morphine Sulfate 2 Mg/Ml Inj IV 01/06/22 16:58 Not Given STAT ONE Morphine Sulfate Confirm 01/06/22 17:19 Morphine Sulfate 2 Mg/Ml Inj Administered 01/06/22 17:20 Dose 2 mg .ROUTE .STK-MED ONE Morphine Sulfate 4 mg 01/06/22 17:22 01/06/22 17:36 Morphine Sulfate 4 Mg/Ml Injection IV 01/06/22 17:23 4 mg STAT ONE Administration Morphine Sulfate Confirm 01/06/22 17:42 Morphine Sulfate 4 Mg/Ml Injection Administered 01/06/22 17:43 Dose 4 mg .ROUTE .STK-MED ONE Nicotine 14 mg 01/08/22 19:45 01/08/22 21:36 Nicotine 14 Mg/Patch Patch TOP 02/07/22 19:44 14 mg Q24H JOSE RAUL Administration Non-Formulary Medication 1 each 01/08/22 10:00 Losartan/Hydrochlorothiazide [Losartan-Hctz 100-25 Mg Tab] PO 02/07/22 09:59 DAILY JOSE RAUL Ondansetron HCl 4 mg 01/06/22 16:57 01/06/22 17:33 Ondansetron Hcl 4 Mg/2 Ml Vial IV 01/06/22 16:58 4 mg STAT ONE Administration Ondansetron HCl Confirm 01/06/22 17:19 Ondansetron Hcl 4 Mg/2 Ml Vial Administered 01/06/22 17:20 Dose 4 mg .ROUTE .STK-MED ONE Piperacillin Sod/Tazobactam Sod Confirm 01/06/22 19:44 Piperacillin/Tazobactam Sodium 3.375 Gm Vial Administered 01/06/22 19:45 Dose 3.375 gm IV .STK-MED ONE Piperacillin Sod/Tazobactam Sod Confirm 01/07/22 00:37 Piperacillin/Tazobactam Sodium 3.375 Gm Vial Administered 01/07/22 00:38 Dose 3.375 gm IV .STK-MED ONE Piperacillin Sod/Tazobactam Sod Confirm 01/07/22 06:28 Piperacillin/Tazobactam Sodium 3.375 Gm Vial Administered 01/07/22 06:29 Dose 3.375 gm IV .STK-MED ONE Intake & Output (Last 24 hours) 01/07/22 01/08/22 01/09/22 01/10/22 11:59 11:59 11:59 11:59 Intake Total 600 4500 4431 Output Total 200 3175 2300 Balance 400 1325 2131 Weight 90.2 kg 92.2 kg 92.2 kg Laboratory Results (Last 24 hours) 01/09/22 01/09/22 01/09/22 04:35 04:35 04:35 WBC 21.2 H RBC 4.63 Hgb 15.1 Hct 43.6 MCV 94.2 MCH 32.6 H MCHC 34.6 RDW 13.6 Plt Count 247 MPV 10.8 Segmented Neutrophils 90 H Lymphocytes (Manual) 5 L Monocytes (Manual) 3 Eosinophils (Manual) 2 Toxic Granulation 1+ Platelet Estimate NORMAL RBC Morphology NORMAL Sodium 135 L Potassium 2.8 L* Chloride 101 Carbon Dioxide 26 Anion Gap 11.0 BUN 11 Creatinine 1.05 Estimated GFR > 60.0 Glucose 145 H Calcium 8.5 Magnesium 1.8 Total Bilirubin 1.50 H AST 19 ALT 15 Alkaline Phosphatase 79 Serum Total Protein 6.5 Albumin 3.1 L Orders (Last 24 hours) Category Date Time Status Miscellaneous Nursing Order ROUTINE Care 01/08/22 15:11 Active Miscellaneous Nursing Order ROUTINE Care 01/08/22 18:15 Active Order K Level 2 hours post-inf 2 HRS POST K-INFUSED Care 01/09/22 06:52 Active Telemetry q4h Care 01/09/22 06:52 Active Consult Pulmonology ROUTINE Cons 01/08/22 12:29 Active BMP AM.LAB Lab 01/10/22 04:00 Ordered CBC AM.LAB Lab 01/10/22 04:00 Ordered CBC W DIFF AM.LAB Lab 01/09/22 04:35 Completed CBC W DIFF AM.LAB Lab 01/10/22 04:00 Ordered CMP AM.LAB Lab 01/09/22 04:35 Completed CMP AM.LAB Lab 01/10/22 04:00 Ordered MAG [MAGNESIUM] Urgent Lab 01/09/22 04:35 Completed Manual Differential NC Routine Lab 01/09/22 04:35 Completed Potassium Routine Lab 01/09/22 18:00 Ordered Nicotine 14 mg [Nicoderm Cq 14 mg] Med 01/08/22 19:45 Discontinued 14 mg TOP Q24H Nicotine 14 mg [Nicoderm Cq 14 mg] Med 01/09/22 10:00 Active 14 mg TOP Q24H10 Potassium Chloride 20Meq/100Ml [POTASSIUM CHLORIDE 20 Med 01/09/22 07:00 Discontinued mEq IN WATER 100ML] 20 meq in 100 ml IV Q2H Patient Care Notes (Last 24 hours) 01/09/22 11:47 Case Management Note by Sheridan Gregory REVIEWED CHART- NO CHANGE IN DC PLANS AT THIS TIME Initialized on 01/09/22 11:47 - END OF NOTE 01/08/22 14:11 Nursing Note by [place] Syed 01-08-22 DR KIM ROUNDED ON PATIENT, NURSE [place] PRESENT [id number] NIGHAT Initialized on 01/08/22 14:11 - END OF NOTE 01/08/22 12:48 Nursing Note by [place] Syed [id number] CALLED IN CONSULT TO DR KIM AND SPOKE WITH ASHLEY. HE WILL NOTIFY DR. DISLA 01-08-22 Initialized on 01/08/22 12:48 - END OF NOTE 01/08/22 12:30 (created 01/08/22 13:04) Nursing Note by [place] Ward Rounded with Dr. Peck on pt. Initialized on 01/08/22 13:04 - END OF NOTE Code(s): J18.9 - PNEUMONIA, UNSPECIFIED ORGANISM (3) Gastroenteritis Current Visit: Yes Status: Resolved Code(s): K52.9 - NONINFECTIVE GASTROENTERITIS AND COLITIS, UNSPECIFIED (4) Incidental pulmonary nodule, greater than or equal to 8mm Current Visit: Yes Status: Acute Code(s): R91.1 - SOLITARY PULMONARY NODULE
[2022-01-09] MEDS ORDERED: POTASSIUM CHLORIDE 20 mEq IN WATER 100ML 20 MEQ/100 ML BAG IV ONE (19:00)
[2022-01-09] MEDS: TYLENOL 325 MG PO PRN (22:53)
[2022-01-09] MEDS: Levofloxacin 500MG/100ML D5W 500 MG/100 ML BAG IV SCH (22:53)
[2022-01-10] MEDS: Zosyn 3.375 GM Vial 3.375 GM in Sodium Chloride 100ML MINI-BAG PLUS 100 ML IV SCH ×3 (00:15→11:22)
[2022-01-10] MEDS: DUONEB 0.5-3 MG/3 ml Neb IH SCH ×2 (00:23→06:51)
[2022-01-10] MEDS: Sodium Chloride 0.9% 1000 ML 1,000 ML IV SCH (05:27)
[2022-01-10] MEDS: MORPHINE SULFATE 2 MG INJ IV PRN (05:59)
[2022-01-10 06:14] LABS: ALBUMIN 3.2 g/dL (3.5-5.0); ALKALINE PHOSPHATASE 83 U/L (38-126); ANION GAP 12.9 MEQ/L (5-15); BLOOD UREA NITROGEN 11 mg/dL (9-20); CHLORIDE 102 mmol/L (98-107); Calcium 8.7 mg/dL (8.4-10.2); Carbon Dioxide 26 mmol/L (22-30); Creatinine 1 1.05 mg/dL (0.66-1.25); EST GLOMERULAR FILTRATION RATE > 60.0 ML/MIN; Glucose 115 mg/dL (74-106); Potassium 3.2 mmol/L (3.5-5.1); SGOT/AST 30 U/L (17-59); SGPT/ALT 25 U/L (0-50); SODIUM 137 mmol/L (137-145); Total Protein 6.6 g/dL (6.3-8.2)
[2022-01-10 06:19] LABS: Hematocrit 42.8 % (42-50); Mean Cell Volume 93.7 fl (78-100); Mean Corpuscular Hemoglobin 32.8 pg (26-32); Mean Platelet Volume 10.9 fl (7.5-11.0); Platelet Count 234 K/mm3 (150-450); Red Blood Count 4.57 M/mm3 (4.1-5.6); Red Cell Distribution Width 13.8 % (11.5-14.0); White Blood Count 13.8 K/mm3 (4.0-10.5)
[2022-01-10] MEDS: Advair Hfa 115/21 Common canister IH SCH (06:53)
[2022-01-10] MEDS: Pepcid 20 MG PO SCH (08:24)
[2022-01-10] MEDS: Cozaar 50 MG PO SCH (08:24)
[2022-01-10] MEDS: hydroDIURIL 25 MG PO SCH (08:24)
[2022-01-10] MEDS: Toprol-Xl 25MG Tablets PO SCH (08:24)
[2022-01-10] MEDS: PROTONIX 40 MG IV IV SCH (08:24)
[2022-01-10] MEDS: XARELTO 10 MG TABLET PO SCH (08:24)
[2022-01-10] MEDS: Singulair 10 MG PO SCH (08:24)
[2022-01-10] MEDS: Cardizem CD 120 MG PO SCH (08:24)
[2022-01-10] MEDS: NICODERM CQ 14 MG TOP SCH (08:25)
[2022-01-10] MEDS: Levofloxacin 500MG/100ML D5W 500 MG/100 ML BAG IV SCH (10:13)
[2022-01-10 11:23] LABS: Eosinophil 2 % (0.00-3.0); Lymphocytes 8 % (24-44); Monocyte 8 % (0.0-12.0); Neutrophils 82 % (36.-66.); Platelet Estimate NORMAL (NORMAL); Total Cells Counted 100
[2022-01-10 11:59] VITALS: BP 128/71; PULSE 87; O2SAT 97
--- NOTE | 2022-01-10 17:37 | PCM.DS ---
Discharge Summary Date of Admission: 01/06/22 22:28 Admitting Physician: NEO MEYER Consults: Consults on Case 01/08/22 12:29 Consult Pulmonology ROUTINE Primary Care Provider: CAROLINE CUEVA NP Allergies Allergies lisinopril Adverse Reaction (Intermediate, Verified 01/06/22 16:40) dizziness gabapentin Adverse Reaction (Verified 01/06/22 16:40) prostate problems naproxen Adverse Reaction (Verified 01/06/22 16:40) Hospital Summary - Hospital Course Hospital Course: Chief Complaint Diagnosis c/o abdominal pain, nausea, vomiting for 1-2 days Allergies Allergy/AdvReac Type Severity Reaction Status Date / Time lisinopril AdvReac Intermediate Verified 01/06/22 16:40 gabapentin AdvReac Verified 01/06/22 16:40 naproxen AdvReac Verified 01/06/22 16:40 Vital Signs (Last 24 hours) Temp Pulse Resp BP Pulse Ox 01/10/22 11:59 97.7 F 87 16 128/71 97 01/10/22 07:42 97.3 F 109 H 16 140/72 95 01/10/22 06:54 108 H 18 94 L 01/10/22 04:00 98.5 F 78 20 128/58 96 01/10/22 00:27 97.9 F 91 H 19 119/64 95 01/10/22 00:25 81 18 93 L 01/09/22 20:00 97.8 F 112 H 18 119/69 96 01/09/22 18:35 98 H 20 93 L Home Medications Medication Instructions Recorded Confirmed Last Taken Type Diltiazem HCl [Diltiazem 24Hr ER] 1 ea DAILY 01/06/22 01/07/22 01/06/22 History Famotidine [Pepcid AC] 1 ea DAILY 01/06/22 01/07/22 01/06/22 History Montelukast Sodium 10 mg 1 ea DAILY 01/06/22 01/07/22 01/06/22 History [Singulair 10 MG] Moxifloxacin HCl 400 mg PO DAILY #10 tablet 01/09/22 Unknown Rx Potassium Chloride 10 meq PO DAILY 30 Days #30 tablet 01/10/22 Unknown Rx Current Medications Discontinued Medications Generic Name Dose Route Start Last Admin Trade Name Freq PRN Reason Stop Dose Admin Acetaminophen 650 mg 01/06/22 22:30 01/09/22 22:53 Acetaminophen 325 Mg Tablet PO 02/05/22 22:29 650 mg Q4H PRN PRN Administration PAIN AND/OR FEVER Albuterol/Ipratropium 3 ml 01/07/22 01:00 01/10/22 06:51 Ipratropium/Albuterol Sulfate 3 Ml Ampul.Neb IH 02/06/22 00:59 3 ml Q6HRT JOSE RAUL Administration Diltiazem HCl 240 mg 01/07/22 12:00 01/10/22 08:24 Diltiazem Hcl 120 Mg Cap.Sr.24h PO 02/06/22 11:59 240 mg DAILY JOSE RAUL Administration Famotidine 20 mg 01/07/22 12:00 01/10/22 08:24 Famotidine 20 Mg Tablet PO 02/06/22 11:59 20 mg DAILY JOSE RAUL Administration Hydrochlorothiazide 25 mg 01/07/22 12:00 01/10/22 08:24 Hydrochlorothiazide 25 Mg Tablet PO 02/06/22 11:59 25 mg DAILY JOSE RAUL Administration Sodium Chloride 1,000 mls @ 999 mls/hr 01/06/22 16:57 01/06/22 19:11 Sodium Chloride 0.9% 1000 Ml IV 01/06/22 17:57 Infused .Q1H1M STA Infusion Sodium Chloride Confirm 01/06/22 17:19 Sodium Chloride 0.9% 1000 Ml Administered 01/06/22 17:20 Dose 1,000 mls @ ud .ROUTE .STK-MED ONE Levofloxacin/Dextrose 750 mg in 150 mls @ 100 mls/hr 01/06/22 19:13 01/06/22 21:03 Levofloxacin 750mg/150ml D5w IV 01/06/22 20:42 100 mls/hr STAT STA 100 mls/hr Administration Piperacillin Sod/Tazobactam 100 mls @ 200 mls/hr 01/06/22 19:13 01/06/22 19:45 Sod 3.375 gm/ Sodium Chloride IV 01/06/22 19:42 200 mls/hr STAT ONE Administration Sodium Chloride Confirm 01/06/22 19:44 Sodium Chloride 100ml Mini-Bag Plus Administered 01/06/22 19:45 Dose 100 mls @ ud IV .STK-MED ONE Levofloxacin/Dextrose Confirm 01/06/22 21:00 Levofloxacin 750mg/150ml D5w Administered 01/06/22 21:01 Dose 750 mg in 150 mls @ ud IV .STK-MED ONE Sodium Chloride 1,000 mls @ 100 mls/hr 01/06/22 22:30 01/10/22 05:27 Sodium Chloride 0.9% 1000 Ml IV 02/05/22 22:29 100 mls/hr .Q10H JOSE RAUL Administration Levofloxacin/Dextrose 500 mg in 100 mls @ 100 mls/hr 01/07/22 22:00 01/10/22 10:13 Levofloxacin 500mg/100ml D5w IV 02/06/22 21:59 100 mls/hr HS JOSE RAUL Administration Piperacillin Sod/Tazobactam 100 mls @ 200 mls/hr 01/07/22 00:00 01/10/22 11:22 Sod 3.375 gm/ Sodium Chloride IV 01/12/22 00:00 200 mls/hr Q6HT JOSE RAUL Administration Sodium Chloride Confirm 01/07/22 00:39 Sodium Chloride 100ml Mini-Bag Plus Administered 01/07/22 00:40 Dose 100 mls @ ud IV .STK-MED ONE Sodium Chloride Confirm 01/07/22 06:30 Sodium Chloride 100ml Mini-Bag Plus Administered 01/07/22 06:31 Dose 100 mls @ ud IV .STK-MED ONE Potassium Chloride 20 meq in 100 mls @ 50 mls/hr 01/09/22 07:00 01/09/22 11:43 Potassium Chloride 20 Meq In Water 100ml IV 01/09/22 10:59 50 mls/hr Q2H JOSE RAUL Administration Potassium Chloride 20 meq in 100 mls @ 50 mls/hr 01/09/22 19:00 01/09/22 20:01 Potassium Chloride 20 Meq In Water 100ml IV 01/09/22 20:59 50 mls/hr STAT ONE Administration Losartan Potassium 100 mg 01/07/22 12:00 01/10/22 08:24 Losartan Potassium 50 Mg Tablet PO 02/06/22 11:59 100 mg DAILY JOSE RAUL Administration Metoprolol Succinate 25 mg 01/07/22 12:00 01/10/22 08:24 Metoprolol Succinate 25 Mg Xl Tab PO 02/06/22 11:59 25 mg DAILY JOSE RAUL Administration Montelukast Sodium 10 mg 01/07/22 12:00 02/16/22 08:24 Montelukast Sodium 10 Mg Tablet PO 02/06/22 11:59 10 mg DAILY JOSE RAUL Administration Morphine Sulfate 2 mg 01/06/22 16:57 01/06/22 17:38 Morphine Sulfate 2 Mg/Ml Inj IV 01/06/22 16:58 Not Given STAT ONE Morphine Sulfate Confirm 01/06/22 17:19 Morphine Sulfate 2 Mg/Ml Inj Administered 01/06/22 17:20 Dose 2 mg .ROUTE .STK-MED ONE Morphine Sulfate 4 mg 01/06/22 17:22 01/06/22 17:36 Morphine Sulfate 4 Mg/Ml Injection IV 01/06/22 17:23 4 mg STAT ONE Administration Morphine Sulfate Confirm 01/06/22 17:42 Morphine Sulfate 4 Mg/Ml Injection Administered 01/06/22 17:43 Dose 4 mg .ROUTE .STK-MED ONE Morphine Sulfate 2 mg 01/06/22 22:30 01/10/22 05:59 Morphine Sulfate 2 Mg/Ml Inj IV 01/11/22 22:29 2 mg Q4H PRN PRN Administration PAIN Nicotine 14 mg 01/08/22 19:45 01/08/22 21:36 Nicotine 14 Mg/Patch Patch TOP 02/07/22 19:44 14 mg Q24H JOSE RAUL Administration Nicotine 14 mg 01/09/22 10:00 01/10/22 08:25 Nicotine 14 Mg/Patch Patch TOP 02/07/22 19:44 14 mg Q24H10 JOSE RAUL Administration Non-Formulary Medication 1 each 01/08/22 10:00 Losartan/Hydrochlorothiazide [Losartan-Hctz 100-25 Mg Tab] PO 02/07/22 09:59 DAILY JOSE RAUL Ondansetron HCl 4 mg 01/06/22 16:57 01/06/22 17:33 Ondansetron Hcl 4 Mg/2 Ml Vial IV 01/06/22 16:58 4 mg STAT ONE Administration Ondansetron HCl Confirm 01/06/22 17:19 Ondansetron Hcl 4 Mg/2 Ml Vial Administered 01/06/22 17:20 Dose 4 mg .ROUTE .STK-MED ONE Pantoprazole Sodium 40 mg 01/07/22 10:00 01/10/22 08:24 Pantoprazole 40 Mg Vial IV 02/06/22 09:59 40 mg Q24H10 JOSE RAUL Administration Piperacillin Sod/Tazobactam Sod Confirm 01/06/22 19:44 Piperacillin/Tazobactam Sodium 3.375 Gm Vial Administered 01/06/22 19:45 Dose 3.375 gm IV .STK-MED ONE Piperacillin Sod/Tazobactam Sod Confirm 01/07/22 00:37 Piperacillin/Tazobactam Sodium 3.375 Gm Vial Administered 01/07/22 00:38 Dose 3.375 gm IV .STK-MED ONE Piperacillin Sod/Tazobactam Sod Confirm 01/07/22 06:28 Piperacillin/Tazobactam Sodium 3.375 Gm Vial Administered 01/07/22 06:29 Dose 3.375 gm IV .STK-MED ONE Rivaroxaban 20 mg 01/07/22 12:00 01/10/22 08:24 Rivaroxaban 10 Mg Tablet PO 02/06/22 11:59 20 mg DAILY JOSE RAUL Administration Fluticasone/Salmeterol 2 puff 01/07/22 07:00 01/10/22 06:53 Fluticasone/Salmeterol 115/21 - 120 Puff Common Canister IH 02/06/22 06:59 2 puff BIDRT JOSE RAUL Administration Intake & Output (Last 24 hours) 01/08/22 01/09/22 01/10/22 01/11/22 11:59 11:59 11:59 11:59 Intake Total 4500 4431 4855 240 Output Total 3175 2300 2550 1000 Balance 1325 2131 2305 -760 Weight 92.2 kg 92.2 kg Laboratory Results (Last 24 hours) 01/10/22 01/10/22 01/09/22 05:20 05:20 17:55 WBC 13.8 H RBC 4.57 Hgb 15.0 Hct 42.8 MCV 93.7 MCH 32.8 H MCHC 35.0 RDW 13.8 Plt Count 234 MPV 10.9 Segmented Neutrophils 82 H Lymphocytes (Manual) 8 L Monocytes (Manual) 8 Eosinophils (Manual) 2 Platelet Estimate NORMAL RBC Morphology NORMAL Sodium 137 Potassium 3.2 L 3.0 L* Chloride 102 Carbon Dioxide 26 Anion Gap 12.9 BUN 11 Creatinine 1.05 Estimated GFR > 60.0 Glucose 115 H Calcium 8.7 Total Bilirubin 1.30 AST 30 ALT 25 Alkaline Phosphatase 83 Serum Total Protein 6.6 Albumin 3.2 L Orders (Last 24 hours) Category Date Time Status Order K Level 2 hours post-inf 2 HRS POST K-INFUSED Care 01/09/22 19:02 C ompleted Discharge Routine Discharge 01/10/22 09:25 Ordered CBC W DIFF AM.LAB Lab 01/10/22 05:20 Completed CMP AM.LAB Lab 01/10/22 05:20 Completed Manual Differential NC Routine Lab 01/10/22 05:20 Completed Potassium Routine Lab 01/09/22 17:55 Completed Potassium Chloride 20Meq/100Ml [POTASSIUM CHLORIDE 20 Med 01/09/22 19:00 Discontinued mEq IN WATER 100ML] 20 meq in 100 ml IV STAT Patient Care Notes (Last 24 hours) 01/10/22 09:56 Case Management Note by Sheridan Gregory S/W PATIENT- HE CONTINUES TO DENY ANY NEW NEEDS REGARDING DC AT THIS TIME. PAT[facility] HE UNDERSTANDS THAT THEY WILL BE OVERNIGHT[facility] TO [facility] BY [facility] SCR[facility]TS FAXED WITH NOTE TO FILL IMMEDIATELY PER INSTRUCTED BY [facility]. Initialized on 01/10/22 09:56 - END OF NOTE 01/10/22 09:28 Nursing Note by Ledy Prasad PATIENT WILL NOT BE ABLE TO GET PO ANTIBIOTICS UNTIL TOMORROW D/T PREFERENCE OF USING [facility] AND THEM NEEDING TO MAIL THEM OVERNIGHT TO HIM. PHONED AND SPOKE TO PHARMACIST, STATES IT IS OK TO GIVE IV LEVAQUIN EARLY FOR D/C, OK TO GIVE BETWEEN 10:00 AND 12:00 TODAY. Initialized on 01/10/22 09:28 - END OF NOTE 01/10/22 09:24 Case Management Note by Ledy Prasad DR PHONED AND STATED OK TO D/C HOME. NEW ORDER FOR POTASSIUM PO ON D/C RECEIVED. [facility] TO [facility] PER [facility] PREFERENCE BY D/C PLANNING. Initialized on 01/10/22 09:24 - END OF NOTE - Vitals & Intake/Output Vital Signs: Vital Signs Temperature 97.7 F 01/10/22 11:59 Pulse Rate 87 01/10/22 11:59 Respiratory Rate 16 01/10/22 11:59 Blood Pressure 128/71 01/10/22 11:59 O2 Sat by Pulse Oximetry 97 01/10/22 11:59 Intake & Output: Intake & Output 01/08/22 01/09/22 01/10/22 01/11/22 11:59 11:59 11:59 11:59 Intake Total 4500 4481 4855 240 Output Total 3173 2300 2550 1000 Balance 1325 2131 2305 -760 Weight 92.2 kg 92.2 kg - Lab Result Diagrams: 01/10/22 05:20 01/10/22 05:20 Lab Results-Last 24 Hrs: Lab Results-Last 24 Hours 01/09/22 01/10/22 01/10/22 Range/Units 17:55 05:20 05:20 WBC 13.8 H (4.0-10.5) K/mm3 RBC 4.57 (4.1-5.6) M/mm3 Hgb 15.0 (12.5-18.0) gm/dl Hct 42.8 (42-50) % MCV 93.7 (78-100) fl MCH 32.8 H (26-32) pg MCHC 35.0 (32-36) g/dl RDW 13.8 (11.5-14.0) % Plt Count 234 (150-450) K/mm3 MPV 10.9 (7.5-11.0) fl Segmented Neutrophils 82 H (36.-66.) % Lymphocytes (Manual) 8 L (24-44) % Monocytes (Manual) 8 (0.0-12.0) % Eosinophils (Manual) 2 (0.00-3.0) % Platelet Estimate NORMAL (NORMAL) RBC Morphology NORMAL Sodium 137 (137-145) mmol/L Potassium 3.0 L* 3.2 L (3.5-5.1) mmol/L Chloride 102 (98-107) mmol/L Carbon Dioxide 26 (22-30) mmol/L Anion Gap 12.9 (5-15) MEQ/L BUN 11 (9-20) mg/dL Creatinine 1.05 (0.66-1.25) mg/dL Estimated GFR > 60.0 ML/MIN Glucose 115 H (74-106) mg/dL Calcium 8.7 (8.4-10.2) mg/dL Total Bilirubin 1.30 (0.2-1.3) mg/dL AST 30 (17-59) U/L ALT 25 (0-50) U/L Alkaline Phosphatase 83 (38-126) U/L Serum Total Protein 6.6 (6.3-8.2) g/dL Albumin 3.2 L (3.5-5.0) g/dL Micro Results-Entire Visit: Microbiology 01/06/22 17:50 Blood Culture - Preliminary Blood NO GROWTH TO DATE 01/06/22 17:35 Blood Culture - Preliminary Blood NO GROWTH TO DATE - Procedures and Test Procedures and Tests throughout Hospitalization: Therapy Orders & Screens 01/06/22 23:02 RT Screen per Nursing Assess ONCE Comment: Protocol Order Physician Instructions: Greater than 3 points order RT Admission Screen Reason For Exam: Triggered on Admission Diagnosis: Pneumonia Diagnosis: Pneumonia Pneumonia: Yes Home O2: No Asthma: No CHF: No Home CPAP/BIPAP: Yes Home Nebs/MDI: No Total Points: 8 Smoking Cessation Education ONCE Comment: Diagnosis: Pneumonia Smoking Status: Current every day smoker How long have you smoked: 50 years Have you smoked in the past 12 months: Yes Approximately how many cigarettes per day: half pack-one pack a day Do you dip or chew tobacco: No 01/07/22 00:12 BiPap/CPAP ROUTINE Comment: Diagnosis: Pneumonia Respiratory Therapy Assessment DAILY Comment: Diagnosis: Pneumonia 01/07/22 00:21 Respiratory MDI BID Comment: Diagnosis: Pneumonia Discharge Exam General Appearance: no apparent distress, alert Neurologic Exam: alert, 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, cooperative, normal mood/affect, nml cere bellar function, sensation nml, No motor deficits Eye Exam: PERRL, EOMI, eyes nml inspection Ears, Nose, Throat Exam: normal ENT inspection, pharynx normal, moist mucous membranes Neck Exam: normal inspection, non-tender, supple, full range of motion Respiratory Exam: normal breath sounds, lungs clear, No respiratory distress Cardiovascular Exam: regular rate/rhythm, normal heart sounds Gastrointestinal/Abdomen Exam: soft, No tenderness, No mass Male Genitalia Exam: deferred Rectal Exam: deferred Back Exam: normal inspection, normal range of motion, No CVA tenderness, No vertebral tenderness Extremity Exam: normal inspection, normal range of motion Skin Exam: normal color, warm, dry Final Diagnosis/Problem List - Final Discharge Diagnosis/Problem (1) Hypokalemia due to excessive gastrointestinal loss of potassium Status: Resolved Code(s): E87.6 - HYPOKALEMIA (2) Pneumonia Status: Resolved Code(s): J18.9 - PNEUMONIA, UNSPECIFIED ORGANISM (3) Gastroenteritis Status: Resolved Code(s): K52.9 - NONINFECTIVE GASTROENTERITIS AND COLITIS, UNSPECIFIED (4) Incidental pulmonary nodule, greater than or equal to 8mm Status: Acute Code(s): R91.1 - SOLITARY PULMONARY NODULE - Discharge Discharge Date: 01/10/22 Disposition: Home, Self-Care Condition: Stable Prescriptions: New Moxifloxacin HCl 400 mg PO DAILY #10 tablet Potassium Chloride 10 meq PO DAILY 30 Days #30 tablet Continue Losartan/Hydrochlorothiazide [Losartan-Hctz 100-25 mg Tab] 1 each PO DAILY Rivaroxaban 10 mg Tablet [Xarelto 10 mg Tablet] 20 mg DAILY Metoprolol Succinate 50 mg [Toprol Xl 50 MG] 25 mg DAILY Montelukast Sodium 10 mg [Singulair 10 MG] 1 ea DAILY Famotidine [Pepcid AC] 1 ea DAILY Diltiazem HCl [Diltiazem 24Hr ER] 1 ea DAILY Outpatient Orders: CHEST WITHOUT CONTRAST [CT] Time Frame: 2 Weeks, Facility: [facility], Location: RADIOLOGY Instructions: Quitting Smoking for Older Adults, Pneumonia, Adult (DC), Exacerbation of COPD (DC) Follow up with: HARPREET DAHL [ACTIVE STAFF] - 01/25/22 10:30 am ( at [place] )
== END 2022-01-10 12:50 | disposition home or self-care (01) ==
LOC: ED 16:32 → MED SURG 22:28
PROVIDERS: ADMIT General Practice; ATTEND General Practice
DX: E87.6 Hypokalemia (principal); J18.9 Pneumonia, unspecified organism; K52.9 Noninfective gastroenteritis and colitis, unspecified; R91.1 Solitary pulmonary nodule; I48.91 Unspecified atrial fibrillation; I10 Essential (primary) hypertension; E78.5 Hyperlipidemia, unspecified; J44.9 Chronic obstructive pulmonary disease, unspecified; Z79.899 Other long term (current) drug therapy; Z72.0 Tobacco use; Z20.828 Contact with and (suspected) exposure to other viral communicable diseases; Z79.01 Long term (current) use of anticoagulants
CPT/HCPCS: 0241U; 36000; 36415; 71250; 74176; 80053; 81001; 83605; 83690; 83735; 84132; 84484; 85025; 87040; 93005; 93268; 94640; 94660; 94760; 96360; 96374; 96375; 99000; 99285; G0378; J1956; J2270; J2405; J3480; A9270-GY

== ENCOUNTER 2022-05-07 08:05 | Emergency (ER) | payer OTHER ==
--- NOTE | 2022-05-07 08:11 | ERPHSYRPT ---
- History of Present Illness Time Seen by Provider: 05/07/22 08:11 Source: patient Exam Limitations: no limitations Physician History: This is a 67-year-old obese white male who has chronic intermittent back problems. He has a degenerative disc disease and arthritis. He also has atrial fibrillation on Xarelto, hypertension, hyperlipidemia, COPD. Patient did not fall or suffer any acute traumatic injury. However, he intermittently has acute exacerbation of chronic back pain issues. [facility]. 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 He does not see a pain specialist because he said that they have not helped him in the past. He also states that his primary care doctor will not provide him with any medication that will actually help his acute pain. He does not have any urinary incontinence. He has not lost his ability to control his bowel movements. He does not have numbness in his feet. Timing/Duration: today Method of Injury: other (No injury) Quality: sharp, stabbing Back Pain Location: lumbar spine Severity of Pain-Max: moderate Severity of Pain-Current: moderate Associated Symptoms: denies symptoms, lower back pain, No urinary incontinence, No loss of bowel control, No numbness in legs/feet, No sensory/motor loss, No tingling in legs/feet Previous symptoms: same symptoms as today (Intermittently) Allergies/Adverse Reactions: lisinopril Adverse Reaction (Intermediate, Verified 05/07/22 08:18) dizziness gabapentin Adverse Reaction (Verified 05/07/22 08:18) prostate problems naproxen Adverse Reaction (Verified 05/07/22 08:18) Home Medications: Metoprolol Succinate 50 mg [Toprol Xl 50 MG] 25 mg DAILY 08/28/21 [History] Rivaroxaban 10 mg Tablet [Xarelto 10 mg Tablet] 20 mg DAILY 08/28/21 [History] Diltiazem HCl [Diltiazem 24Hr ER] 1 ea DAILY 01/06/22 [History] Montelukast Sodium 10 mg [Singulair 10 MG] 1 ea DAILY 01/06/22 [History] Hx Tetanus, Diphtheria Vaccination/Date Given: Yes Hx Influenza Vaccination/Date Given: No Hx Pneumococcal Vaccination/Date Given: Yes (3 years ago) Travel Risk - International Travel Have you traveled outside of the country in past 3 weeks: No - Coronavirus Screening Are you exhibiting any of the following symptoms?: No Close contact with a COVID-19 positive Pt in past 14-21 Days: No - Vaccine Status Have you recieved a Covid-19 vaccination: No - Review of Systems Constitutional: No Symptoms Eyes: No Symptoms Ears, Nose, & Throat: No Symptoms Respiratory: No Symptoms Cardiac: No Symptoms Abdominal/Gastrointestinal: No Symptoms Genitourinary Symptoms: No Symptoms Musculoskeletal: Back Pain Skin: No Symptoms Neurological: No Symptoms Psychological: No Symptoms Endocrine: No Symptoms Hematologic/Lymphatic: No Symptoms Immunological/Allergic: No Symptoms All Other Systems: Reviewed and Negative - Past Medical History Pertinent Past Medical History: Yes Neurological History: No Pertinent History ENT History: No Pertinent History Cardiac History: Arrhythmia, High Cholesterol, Hypertension Respiratory History: COPD, Sleep Apnea Endocrine Medical History: Other Musculoskeletal History: Arthritis, Degenerative Disk Disease GI Medical History: No Pertinent History History: No Pertinent History Psycho-Social History: Depression Male Reproductive Disorders: No Pertinent History Other Medical History: stage 2 kidney disease - Past Surgical History Past Surgical History: Yes Neuro Surgical History: No Pertinent History Cardiac: No Pertinent History Respiratory: No Pertinent History Gastrointestinal: No Pertinent History Genitourinary: No Pertinent History Musculoskeletal: Orthopedic Surgery Male Surgical History: No Pertinent History Other Surgical History: right and left shoulder surgery, right wrist surgery, right carpal tunnel - Social History Smoking Status: Current every day smoker How long have you smoked: 50 years Exposure to second hand smoke: Yes Drug Use: marijuana Patient Lives Alone: Yes Significant Family History: no pertinent family hx - Nursing Vital Signs Nursing Vital Signs: Initial Vital Signs Temperature 97.2 F 05/07/22 08:09 Pulse Rate 97 H 05/07/22 08:09 Respiratory Rate 18 05/07/22 08:09 Blood Pressure 126/111 05/07/22 08:09 O2 Sat by Pulse Oximetry 97 05/07/22 08:09 Pain Scale Pain Intensity [Back] 7 Pain Intensity 7 - Physical Exam General Appearance: mild distress, alert, anxiety, obese Eye Exam: PERRL/EOMI, eyes nml inspection Ears, Nose, Throat Exam: normal ENT inspection, moist mucous membranes Neck Exam: normal inspection, non-tender, supple, full range of motion Respiratory Exam: airway intact, No chest tenderness, No respiratory distress Cardiovascular Exam: regular rate/rhythm Gastrointestinal Exam: No tenderness Rectal Exam: not done Back Exam: normal inspection, vertebral tenderness (Lumbar level), decreased range of motion, muscle spasm Extremity Exam: normal inspection, normal range of motion, pelvis stable Neurologic Exam: alert, 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, cooperative, secure software assessor II-XII nml as tested, no rmal mood/affect, other (Patient walks with a cane and leaning forward) Skin Exam: normal color, warm, dry Lymphatic Exam: No adenopathy SpO2 Interpretation: normal O2 Delivery: Room Air - Course Nursing assessment & vital signs reviewed: Yes Ordered Tests: Medication Summary Discontinued Medications Generic Name Dose Route Start Last Admin Trade Name Freq PRN Reason Stop Dose Admin Methylprednisolone Sodium 0 mg 05/07/22 08:36 05/07/22 08:48 Succinate 125 mg/ Sterile IM 05/07/22 08:37 125 mg Water 2 ml STAT ONE Administration Hydromorphone HCl 1 mg 05/07/22 08:36 05/07/22 08:46 Hydromorphone 1 Mg/1ml Inj 1 Mg/Ml Syringe IM 05/07/22 08:37 1 mg STAT ONE Administration Hydromorphone HCl Confirm 05/07/22 08:41 Hydromorphone 1 Mg/1ml Inj 1 Mg/Ml Syringe Administered 05/07/22 08:42 Dose 1 mg .ROUTE .STK-MED ONE Methylprednisolone Sodium Succinate Confirm 05/07/22 08:42 Methylprednis Sod Succ 125 Mg/2 Ml Vial Administered 05/07/22 08:43 Dose 125 mg .ROUTE .STK-MED ONE Orphenadrine Citrate 60 mg 05/07/22 08:38 05/07/22 08:45 Orphenadrine Citrate 60 Mg/2 Ml Vial IM 05/07/22 08:39 60 mg STAT ONE Administration Orphenadrine Citrate Confirm 05/07/22 08:41 Orphenadrine Citrate 60 Mg/2 Ml Vial Administered 05/07/22 08:42 Dose 60 mg .ROUTE .STK-MED ONE Prochlorperazine Edisylate 10 mg 05/07/22 08:38 05/07/22 08:45 Prochlorperazine Edisylate 10 Mg/2 Ml Vial IM 05/07/22 08:39 10 mg STAT ONE Administration Prochlorperazine Edisylate Confirm 05/07/22 08:42 Prochlorperazine Edisylate 10 Mg/2 Ml Vial Administered 05/07/22 08:43 Dose 10 mg .ROUTE .STK-MED ONE Sterile Water Confirm 05/07/22 08:41 Water For Injection,Sterile 10 Ml Vial Administered 05/07/22 08:42 Dose 10 ml IJ .STK-MED ONE - Progress Progress: improved, pain not gone completely Counseled pt/family regarding: diagnosis, need for follow-up - Departure Departure Disposition: Home Clinical Impression: Acute exacerbation of chronic low back pain Condition: Stable Critical Care Time: No Referrals: CAROLINE CUEVA NP [Primary Care Provider] - Follow up/PCP as directed Additional Instructions: Take your medication as prescribed. Follow-up with your primary care provider and the [facility] for further evaluation and management Prescriptions: Oxycodone HCl/Acetaminophen [Percocet 5-325 mg Tablet] 1 each PO Q8H PRN PRN #6 tablet MDD 3 PRN Reason: Moderate To Severe Pain Prednisone 10 mg [Deltasone 10 mg] 10 mg PO TID #12 tablet Orphenadrine Citrate 100 mg [Norflex 100 MG Tablet] 100 mg PO BID #10 tab
[2022-05-07] MEDS ORDERED: Hydromorphone 1 mg/ml Injection IM ONE (08:36)
[2022-05-07] MEDS ORDERED: solu-MEDROL 125 MG, Sterile H2O 10 ml 2 ML IM ONE ×2 (08:36)
[2022-05-07] MEDS ORDERED: Norflex 60 MG/2 ML IM ONE (08:38)
[2022-05-07] MEDS ORDERED: Compazine 10 MG/2 ML IM ONE (08:38)
[2022-05-07] MEDS ORDERED: Norflex 60 MG/2 ML ONE (08:41)
[2022-05-07] MEDS ORDERED: Hydromorphone 1 mg/ml Injection ONE (08:41)
[2022-05-07] MEDS ORDERED: Sterile H2O 10 ml IJ ONE (08:41)
[2022-05-07] MEDS ORDERED: Compazine 10 MG/2 ML ONE (08:42)
[2022-05-07] MEDS ORDERED: solu-MEDROL ONE (08:42)
[2022-05-07 09:25] VITALS: PULSE 67; O2SAT 96
[2022-05-07 09:58] VITALS: BP 163/87
== END 2022-05-07 09:25 | disposition home or self-care (01) ==
LOC: ED 08:05
DX: G89.29 Other chronic pain (principal); M54.50 Low back pain, unspecified; E78.5 Hyperlipidemia, unspecified; J44.9 Chronic obstructive pulmonary disease, unspecified; I12.9 Hypertensive chronic kidney disease with stage 1 through stage 4 chronic kidney disease, or unspecified chronic kidney disease; N18.2 Chronic kidney disease, stage 2 (mild); Z79.01 Long term (current) use of anticoagulants; Z79.891 Long term (current) use of opiate analgesic; Z79.52 Long term (current) use of systemic steroids; Z79.899 Other long term (current) drug therapy; Z28.310 Unvaccinated for COVID-19; Z72.0 Tobacco use
CPT/HCPCS: 96372; 99284; J1170; J2360; J2930

== ENCOUNTER 2022-06-23 17:18 | Emergency (ER) | payer OTHER ==
[2022-06-23 17:28] VITALS: BP 173/75; PULSE 67; O2SAT 98
[2022-06-23] MEDS ORDERED: Adacel Vial IM ONE ×2 (17:28→17:30)
--- NOTE | 2022-06-23 17:38 | ERPHSYRPT ---
- History of Present Illness Time Seen by Provider: 06/23/22 17:33 Source: patient Exam Limitations: no limitations Patient Subjective Stated Complaint: Foreign body-fish hook in right hand Triage Nursing Assessment: Patient ambulated back to ED and transferred self to bed. Patient A+O X3. Patient's skin pink, warm and dry. Patient states he has a fish hook stuck in the hand. Patient has a fish hook noted to top of right hand. Patient complains of pain 4/10. Physician History: Patient states he has a fish hook stuck in the hand. Patient has a fish hook noted to top of right hand. Patient complains of pain 4/10. Timing/Duration: today Severity: mild Associated Symptoms: denies symptoms Allergies/Adverse Reactions: lisinopril Adverse Reaction (Intermediate, Verified 06/23/22 17:23) dizziness gabapentin Adverse Reaction (Verified 06/23/22 17:23) prostate problems naproxen Adverse Reaction (Verified 06/23/22 17:23) Home Medications: Metoprolol Succinate 50 mg [Toprol Xl 50 MG] 25 mg DAILY 08/28/21 [History] Rivaroxaban 10 mg Tablet [Xarelto 10 mg Tablet] 20 mg DAILY 08/28/21 [History] Diltiazem HCl [Diltiazem 24Hr ER] 1 ea DAILY 01/06/22 [History] Montelukast Sodium 10 mg [Singulair 10 MG] 1 ea DAILY 01/06/22 [History] Hx Tetanus, Diphtheria Vaccination/Date Given: No Hx Influenza Vaccination/Date Given: No Hx Pneumococcal Vaccination/Date Given: Yes (3 years ago) Immunizations Up to Date: Yes Travel Risk - International Travel Have you traveled outside of the country in past 3 weeks: No - Coronavirus Screening Are you exhibiting any of the following symptoms?: No Close contact with a COVID-19 positive Pt in past 14-21 Days: No - Vaccine Status Have you recieved a Covid-19 vaccination: No - Review of Systems Constitutional: No Symptoms Eyes: No Symptoms Ears, Nose, & Throat: No Symptoms Respiratory: No Symptoms Abdominal/Gastrointestinal: No Symptoms Genitourinary Symptoms: No Symptoms Musculoskeletal: No Symptoms Skin: No Symptoms Neurological: No Symptoms - Past Medical History Pertinent Past Medical History: Yes Neurological History: No Pertinent History ENT History: No Pertinent History Cardiac History: Arrhythmia, High Cholesterol, Hypertension Respiratory History: COPD, Sleep Apnea Endocrine Medical History: Other Musculoskeletal History: Arthritis, Degenerative Disk Disease GI Medical History: No Pertinent History History: No Pertinent History Psycho-Social History: Depression Male Reproductive Disorders: No Pertinent History Other Medical History: stage 2 kidney disease - Past Surgical History Past Surgical History: Yes Neuro Surgical History: No Pertinent History Cardiac: No Pertinent History Respiratory: No Pertinent History Gastrointestinal: No Pertinent History Genitourinary: No Pertinent History Musculoskeletal: Orthopedic Surgery Male Surgical History: No Pertinent History Other Surgical History: right and left shoulder surgery, right wrist surgery, right carpal tunnel - Social History Smoking Status: Current every day smoker How long have you smoked: 50 years Exposure to second hand smoke: Yes Drug Use: marijuana Patient Lives Alone: Yes Significant Family History: no pertinent family hx - Nursing Vital Signs Nursing Vital Signs: Initial Vital Signs Temperature 97.6 F 06/23/22 17:23 Pulse Rate 67 06/23/22 17:23 Respiratory Rate 18 06/23/22 17:23 Blood Pressure 173/75 06/23/22 17:23 O2 Sat by Pulse Oximetry 98 06/23/22 17:23 Pain Scale Pain Intensity 4 - Physical Exam General Appearance: no apparent distress Eye Exam: PERRL/EOMI Ears, Nose, Throat Exam: normal ENT inspection Neck Exam: normal inspection Back Exam: normal inspection Extremity Exam: normal inspection, other (fish hook on right dorsum of hand) Neurologic Exam: alert, 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 Skin Exam: normal color SpO2 Interpretation: normal SpO2: 98 O2 Delivery: Room Air - Course Nursing assessment & vital signs reviewed: Yes Ordered Tests: Medication Summary Discontinued Medications Generic Name Dose Route Start Last Admin Trade Name Freq PRN Reason Stop Dose Admin Diphtheria/Tetanus/Acell Pertussis 0.5 ml 06/23/22 17:28 06/23/22 17:31 Tdap --Diph,Pertuss(Acell),Tet Vac/Pf 0.5 Ml Vial IM 06/23/22 17:29 0.5 ml .ONCE ONE Administration Diphtheria/Tetanus/Acell Pertussis Confirm 06/23/22 17:30 Tdap --Diph,Pertuss(Acell),Tet Vac/Pf 0.5 Ml Vial Administered 06/23/22 17:31 Dose 0.5 ml IM .ST-MED ONE - Progress Progress: improved Progress Note: 06/23/22 17:35 Procedure; Bandera removal from the right dorsum of the hand. Area where the fishhook entry is injected with 1 cc lidocaine. Small incision was put across the fishhook insertion and fishhook was removed without any complication. Patient does not have any tetanus immunization for last 10 years or so Adacel 0.5 mg intramuscular given. Patient tolerated procedure well. Bandera was given back to the patient. Counseled pt/family regarding: diagnosis, need for follow-up - Departure Departure Disposition: Home Clinical Impression: Fish hook in dorsum of hand Condition: Stable Critical Care Time: No Referrals: CAROLINE CUEVA NP [Primary Care Provider] - Follow up/PCP as directed Instructions: Removal of Foreign Body in Skin Additional Instructions: Discharge/Care Plan CANDACEPHOENIX DILLON was seen on 06/23/22 in the Emergency Room. The patient was counseled regarding Diagnosis,Lab results, Imaging studies, need for follow up and when to return to the Emergency Room. Prescriptions given: Discharge Note I have spoken with the patient and/or caregivers. I have explained the patient's condition, diagnosis and treatment plan based on the information available to me at this time. I have answered the patient's and/or caregiver's questions and addressed any concerns. The patient and/or caregivers have as good understanding of the patient's diagnosis, condition and treatment plan as can be expected at this point. The vital signs have been stable. The patient's condition is stable and appropriate for discharge from the emergency department. The patient will pursue further outpatient evaluation with the primary care physician or other designated or consulting physician as outlined in the discharge instructions. The patient and/or caregivers are agreeable to this plan of care and follow-up instructions have been explained in detail. The patient and/or caregivers have received these instruction. The patient/and or caregivers are aware that any significant change in condition or worsening of symptoms should prompt an immediate return to this or the closest emergency department or call 911.
== END 2022-06-23 17:40 | disposition home or self-care (01) ==
LOC: ED 17:18
DX: S61.441A Puncture wound with foreign body of right hand, initial encounter (principal); W26.8XXA Contact with other sharp object(s), not elsewhere classified, initial encounter; W45.8XXA Other foreign body or object entering through skin, initial encounter; E78.5 Hyperlipidemia, unspecified; J44.9 Chronic obstructive pulmonary disease, unspecified; I12.9 Hypertensive chronic kidney disease with stage 1 through stage 4 chronic kidney disease, or unspecified chronic kidney disease; N18.2 Chronic kidney disease, stage 2 (mild); Z72.0 Tobacco use; Z79.01 Long term (current) use of anticoagulants; Z79.899 Other long term (current) drug therapy; Z28.310 Unvaccinated for COVID-19
CPT/HCPCS: 10120; 90471; 90715; 99282

== ENCOUNTER 2022-10-01 10:14 | Emergency (ER) | payer OTHER ==
[2022-10-01] MEDS ORDERED: solu-MEDROL 125 MG, Sterile H2O 10 ml 2 ML IM ONE ×2 (10:47)
[2022-10-01] MEDS ORDERED: Sterile H2O 10 ml IJ ONE (10:50)
[2022-10-01] MEDS ORDERED: solu-MEDROL ONE (10:50)
--- NOTE | 2022-10-01 11:07 | ERPHSYRPT ---
- History of Present Illness Time Seen by Provider: 10/01/22 10:34 Source: patient Exam Limitations: no limitations Patient Subjective Stated Complaint: C/O right ear pain for the past 3 days Triage Nursing Assessment: Patient is alert and oriented. No SOB. Patient ambulates with a cane. Hearing aids noted. Physician History: 67-year-old presented in the ER with chief complaint of right earache for the last 3 days with progressive worsening. Patient reports decreased hearing and sensation of fullness with progressive worsening. Denies any URI symptoms. Does have history of tinnitus. Denies any dizziness, lightheadedness, numbness tingling or focal weakness. Also complaining of pain radiating down to the neck. Timing/Duration: gradual onset, days (3) Severity: moderate ENT Location: ear (R) Prearrival Treatment: no prearrival treatment Associated Symptoms: ear pain (R), swollen glands, No ear drainage, No sinus infection, No sore throat Allergies/Adverse Reactions: lisinopril Adverse Reaction (Intermediate, Verified 10/01/22 10:36) dizziness gabapentin Adverse Reaction (Verified 10/01/22 10:36) prostate problems naproxen Adverse Reaction (Verified 10/01/22 10:36) Home Medications: Metoprolol Succinate 50 mg [Toprol Xl 50 MG] 25 mg DAILY 08/28/21 [History] Rivaroxaban 10 mg Tablet [Xarelto 10 mg Tablet] 20 mg DAILY 08/28/21 [History] Diltiazem HCl [Diltiazem 24Hr ER] 1 ea DAILY 01/06/22 [History] Montelukast Sodium 10 mg [Singulair 10 MG] 1 ea DAILY 01/06/22 [History] Hx Tetanus, Diphtheria Vaccination/Date Given: No Hx Influenza Vaccination/Date Given: No Hx Pneumococcal Vaccination/Date Given: No Immunizations Up to Date: No Travel Risk - International Travel Have you traveled outside of the country in past 3 weeks: No - Coronavirus Screening Are you exhibiting any of the following symptoms?: No Close contact with a COVID-19 positive Pt in past 14-21 Days: No - Vaccine Status Have you recieved a Covid-19 vaccination: No - Review of Systems Constitutional: No Symptoms Eyes: No Symptoms Ears, Nose, & Throat: Ear Pain Respiratory: No Symptoms Cardiac: No Symptoms Abdominal/Gastrointestinal: No Symptoms Musculoskeletal: No Symptoms Skin: No Symptoms Neurological: No Symptoms Hematologic/Lymphatic: No Symptoms Immunological/Allergic: No Symptoms - Past Medical History Pertinent Past Medical History: Yes Neurological History: No Pertinent History ENT History: No Pertinent History Cardiac History: Arrhythmia, High Cholesterol, Hypertension Respiratory History: COPD, Sleep Apnea, Other Endocrine Medical History: Other Musculoskeletal History: Arthritis, Degenerative Disk Disease GI Medical History: No Pertinent History History: No Pertinent History Psycho-Social History: Depression Male Reproductive Disorders: No Pertinent History Other Medical History: stage 2 kidney disease, Lung mass - Past Surgical History Past Surgical History: Yes Neuro Surgical History: No Pertinent History Cardiac: No Pertinent History Respiratory: No Pertinent History Gastrointestinal: No Pertinent History Genitourinary: No Pertinent History Musculoskeletal: Orthopedic Surgery Male Surgical History: No Pertinent History Other Surgical History: right and left shoulder surgery, right wrist surgery, right carpal tunnel - Social History Smoking Status: Current every day smoker How long have you smoked: 45 years Exposure to second hand smoke: No Drug Use: marijuana Patient Lives Alone: Yes Significant Family History: no pertinent family hx - Nursing Vital Signs Nursing Vital Signs: Initial Vital Signs Temperature 97.4 F 10/01/22 10:38 Pulse Rate 74 10/01/22 10:38 Respiratory Rate 18 10/01/22 10:38 Blood Pressure 145/84 10/01/22 10:38 O2 Sat by Pulse Oximetry 95 10/01/22 10:38 Pain Scale Pain Intensity 5 - Physical Exam General Appearance: no apparent distress, alert Eye Exam: bilateral eye: normal inspection, PERRL, EOMI Ear Exam: right ear: TM red, bilateral ear: auricle normal, canal normal Nasal Exam: normal inspection, active bleeding Throat Exam: normal, pharynx normal, No dental tenderness Neck Exam: normal inspection, non-tender, supple, full range of motion Cardiovascular/Respiratory Exam: chest non-tender, normal breath sounds, regular rate/rhythm Abdominal Exam: non-tender Neurologic Exam: alert, 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, cooperative, cardiopulmonary supervisor II-XII nml as tested, normal mood/affect, nml cerebellar function, nml station & gait, sensation nml Skin Exam: normal color SpO2 Interpretation: normal SpO2: 95 O2 Delivery: Room Air Ordered Tests: Medication Summary Discontinued Medications Generic Name Dose Route Start Last Admin Trade Name Freq PRN Reason Stop Dose Admin Methylprednisolone Sodium 0 mg 10/01/22 10:47 10/01/22 10:51 Succinate 125 mg/ Sterile IM 10/01/22 10:48 125 mg Water 2 ml STAT ONE Administration Methylprednisolone Sodium Succinate Confirm 10/01/22 10:50 Methylprednis Sod Succ 125 Mg/2 Ml Vial Administered 10/01/22 10:51 Dose 125 mg .ROUTE .STK-MED ONE Sterile Water Confirm 10/01/22 10:50 Water For Injection,Sterile 10 Ml Vial Administered 10/01/22 10:51 Dose 10 ml IJ .STK-MED ONE - Progress Progress: unchanged Progress Note: 10/01/22 11:05 Is given a steroid shot which will help decrease inflammation around her eustachian tube area and better drainage. Will place on Augmentin along with Flonase and outpatient follow-up recommended. Discussed signs symptoms of worsening needing return to ER which he seems understanding. Counseled pt/family regarding: diagnosis, need for follow-up - Departure Departure Disposition: Home Clinical Impression: Otitis media Condition: Stable Critical Care Time: No Referrals: CAROLINE CUEVA NP [Primary Care Provider] - Follow up/PCP as directed (1-2 days for reevaluation) Additional Instructions: Take Tylenol as needed. Follow-up with primary care for reevaluation. Return to ER for any worsening. Prescriptions: Amox Tr/Potass Clav. 875 mg [Augmentin 875-125 Tablet] 875 mg PO BID #20 tablet Fluticasone Propionate [Flonase NASAL] 16 gm NS DAILY #1
[2022-10-01 11:23] VITALS: BP 140/80; PULSE 76; O2SAT 97
== END 2022-10-01 11:24 | disposition home or self-care (01) ==
LOC: ED 10:14
DX: H66.91 Otitis media, unspecified, right ear (principal); M54.2 Cervicalgia; E78.5 Hyperlipidemia, unspecified; I12.9 Hypertensive chronic kidney disease with stage 1 through stage 4 chronic kidney disease, or unspecified chronic kidney disease; N18.2 Chronic kidney disease, stage 2 (mild); Z72.0 Tobacco use; Z79.01 Long term (current) use of anticoagulants; Z79.899 Other long term (current) drug therapy; Z28.310 Unvaccinated for COVID-19
CPT/HCPCS: 96372; 99282; J2930

== ENCOUNTER 2023-07-15 09:49 | Emergency (ER) | payer OTHER ==
--- NOTE | 2023-07-15 09:52 | ERPHSYRPT ---
- History of Present Illness Time Seen by Provider: 07/15/23 09:52 Source: patient Exam Limitations: no limitations Physician History: This is a 68-year-old white male patient who uses [facility] for [facility] but was seen by general production manager Dr. Jenkins. Patient has a history of COPD and is on both steroids and rescue inhalers, atrial fibrillation on diltiazem and Xarelto, and hypertension. Patient admits to taking the Xarelto only every other day instead of daily. In the last week patient was helping a friend do some work at his home and noticed his shortness of breath has increased. It became more significant yesterday and this morning. 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 His nursing home administrator is through the [facility]. Patient presents to the emergency department with no significant chest pain and a room air oxygenation saturation level of 98%. Timing/Duration: week(s), worse Possible Cause: occasional episodes Modifying Factors: Improves With: activity Associated Symptoms: wheezing, weakness Allergies/Adverse Reactions: lisinopril Adverse Reaction (Intermediate, Verified 10/01/22 10:36) dizziness gabapentin Adverse Reaction (Verified 10/01/22 10:36) prostate problems naproxen Adverse Reaction (Verified 10/01/22 10:36) Home Medications: Rivaroxaban 10 mg Tablet [Xarelto 10 mg Tablet] 20 mg PO DAILY 08/28/21 [History] dilTIAZem HCL [Diltiazem 24Hr ER] 1 ea PO DAILY 01/06/22 [History] Albuterol Sulfate [Albuterol Sulfate Hfa] 8.5 gm IH DAILY 07/15/23 [History] Fluticasone/Umeclidin/Vilanter [Trelegy Ellipta 200-62.5-25] 1 each IH DAILY 07/15/23 [History] Losartan Potassium [Cozaar] 25 mg PO DAILY 07/15/23 [History] Pregabalin [Lyrica 150Mg] 150 mg PO TID 07/15/23 [History] Hx Tetanus, Diphtheria Vaccination/Date Given: No Hx Influenza Vaccination/Date Given: No Hx Pneumococcal Vaccination/Date Given: No Travel Risk - International Travel Have you traveled outside of the country in past 3 weeks: No - Coronavirus Screening Are you exhibiting any of the following symptoms?: Yes Symptoms: Cough: New Onset, Shortness of Breath Close contact with a COVID-19 positive Pt in past 14-21 Days: No - Vaccine Status Have you recieved a Covid-19 vaccination: No - Review of Systems Constitutional: Weakness Eyes: No Symptoms Ears, Nose, & Throat: No Symptoms Respiratory: Cough, Dyspnea on Exertion (RICHARD), Wheezing Cardiac: No Symptoms Abdominal/Gastrointestinal: No Symptoms Genitourinary Symptoms: No Symptoms Musculoskeletal: No Symptoms Skin: No Symptoms Neurological: No Symptoms Psychological: No Symptoms Endocrine: No Symptoms Hematologic/Lymphatic: No Symptoms Immunological/Allergic: No Symptoms All Other Systems: Reviewed and Negative - Past Medical History Pertinent Past Medical History: Yes Neurological History: No Pertinent History ENT History: No Pertinent History Cardiac History: Arrhythmia, High Cholesterol, Hypertension Respiratory History: COPD, Sleep Apnea, Other Endocrine Medical History: Other Musculoskeletal History: Arthritis, Degenerative Disk Disease GI Medical History: No Pertinent History History: No Pertinent History Psycho-Social History: Depression Male Reproductive Disorders: No Pertinent History Other Medical History: stage 2 kidney disease, Lung mass - Past Surgical History Past Surgical History: Yes Neuro Surgical History: No Pertinent History Cardiac: No Pertinent History Respiratory: No Pertinent History Gastrointestinal: No Pertinent History Genitourinary: No Pertinent History Musculoskeletal: Orthopedic Surgery Male Surgical History: No Pertinent History Other Surgical History: right and left shoulder surgery, right wrist surgery, right carpal tunnel - Social History Smoking Status: Current every day smoker How long have you smoked: 45 years Exposure to second hand smoke: No Drug Use: marijuana Patient Lives Alone: Yes Significant Family History: no pertinent family hx - Nursing Vital Signs Nursing Vital Signs: Initial Vital Signs Temperature 97.2 F 07/15/23 09:50 Pulse Rate 73 07/15/23 09:50 Respiratory Rate 24 07/15/23 09:50 Blood Pressure 192/114 07/15/23 09:50 O2 Sat by Pulse Oximetry 95 07/15/23 09:50 Pain Scale Pain Intensity 0 - Physical Exam General Appearance: no apparent distress, alert, anxiety Eye Exam: PERRL/EOMI, eyes nml inspection Ears, Nose, Throat Exam: hearing grossly normal, normal ENT inspection, normal pharynx Neck Exam: normal inspection, non-tender, supple, full range of motion Respiratory Exam: airway intact, wheezing, No chest tenderness, No respiratory d istress Cardiovascular/Chest Exam: normal heart sounds, regular rate/rhythm Abdominal/Gastrointestinal Exam: soft, normal bowel sounds, No tenderness Rectal Exam: not done Extremity Exam: non-tender, normal range of motion, normal inspection, normal capillary refill, no calf tenderness, no pedal edema Neurologic Exam: alert, 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, cooperative, sales representative education courses II-XII nml as tested, normal mood/affect, nml cerebellar function, nml station & gait, sensation nml Skin Exam: normal color, warm, dry Lymphatic Exam: No adenopathy SpO2 Interpretation: normal O2 Delivery: Room Air - Course Nursing assessment & vital signs reviewed: Yes EKG Interpreted by Me: RATE (70), Sinus Rhythm, LAFB, Right Bundle Branch Block, NORMAL ST-T, Other (No acute ischemic changes on today's twelve-lead EKG.) Ordered Tests: Active Orders 24 hr Category Date Time Status Boiler/Chiller Operator STAT Care 07/15/23 09:52 Active EKG-ER Only STAT Care 07/15/23 09:52 Active IV Insertion STAT Care 07/15/23 09:52 Active Pulse Oximetry (ED) STAT Care 07/15/23 09:52 Active CHEST 1 VIEW (PORTABLE) Stat Exams 07/15/23 09:52 Completed CHEST WITHOUT CONTRAST [CT] Stat Exams 07/15/23 10:15 Completed CBC W DIFF Stat Lab 07/15/23 10:02 Completed CMP Stat Lab 07/15/23 10:02 Completed NT PRO BNPII Stat Lab 07/15/23 10:02 Completed TROPONIN Q4H Lab 07/15/23 10:02 Completed TROPONIN Q4H Lab 07/15/23 14:00 Ordered TROPONIN Q4H Lab 07/15/23 18:00 Ordered Medication Summary Discontinued Medications Generic Name Dose Route Start Last Admin Trade Name Freq PRN Reason Stop Dose Admin Albuterol/Ipratropium Confirm 07/15/23 10:14 Ipratropium/Albuterol Sulfate 3 Ml Ampul.Neb Administered 07/15/23 10:15 Dose 3 ml IH .STK-MED ONE Albuterol/Ipratropium 3 ml 07/15/23 10:18 07/15/23 10:19 Ipratropium/Albuterol Sulfate 3 Ml Ampul.Neb IH 07/15/23 10:19 3 ml STAT ONE Administration Lab/Rad Data: Laboratory Result Diagrams 07/15/23 10:02 07/15/23 10:02 Laboratory Results 07/15/23 07/15/23 07/15/23 Range/Units 10:02 10:02 10:02 WBC 6.5 (4.0-10.5) x10^3/uL RBC 5.40 (4.1-5.6) x10^6/uL Hgb 17.5 (12.5-18.0) g/dL Hct 52.5 H (42-50) % MCV 97.2 (78-100) fL MCH 32.4 H (26-32) pg MCHC 33.3 (32-36) g/dL RDW 13.4 (11.5-14.0) % Plt Count 167 (150-450) x10^3/uL MPV 10.7 (7.5-11.0) fL Gran % 49.8 (36.0-66.0) % Immature Gran % (Auto) 0.2 (0.00-0.4) % Nucleat RBC Rel Count 0.0 (0.00-0.1) % Eos # (Auto) 0.18 (0-0.5) x10^3/uL Immature Gran # (Auto) 0.01 (0.00-0.03) x10^3u/L Absolute Lymphs (auto) 2.28 (1.0-4.6) x10^3/uL Absolute Monos (auto) 0.73 (0.0-1.3) x10^3/uL Absolute Nucleated RBC 0.00 (0.00-0.01) x10^3u/L Lymphocytes % 35.1 (24.0-44.0) % Monocytes % 11.2 (0.0-12.0) % Eosinophils % 2.8 (0.00-5.0) % Basophils % 0.9 (0.0-0.4) % Absolute Granulocytes 3.24 (1.4-6.9) x10^3/uL Basophils # 0.06 (0-0.4) x10^3/uL Sodium 140 (137-145) mmol/L Potassium 4.5 (3.5-5.1) mmol/L Chloride 107 (98-107) mmol/L Carbon Dioxide 25 (22-30) mmol/L Anion Gap 13.1 (5-15) MEQ/L BUN 20 (9-20) mg/dL Creatinine 1.14 (0.66-1.25) mg/dL Estimated GFR > 60.0 ML/MIN Glucose 127 H (74-106) mg/dL Calcium 9.3 (8.4-10.2) mg/dL Total Bilirubin 0.50 (0.2-1.3) mg/dL AST 26 (17-59) U/L ALT 23 (0-50) U/L Alkaline Phosphatase 92 (38-126) U/L Troponin I < 0.012 (0.000-0.034) ng/mL NT-Pro-B Natriuret Pep 350 (<300) pg/mL Serum Total Protein 7.0 (6.3-8.2) g/dL Albumin 4.3 (3.5-5.0) g/dL - Progress Progress: improved, re-examined Air Movement: fair Progress Note: 07/15/23 11:[address] scan of the chest without contrast was interpreted by the radiologist and I reviewed the impression. There is a smaller left upper lobe noncalcified masslike opacity. In addition there is a new well-circumscribed left upper lobe noncalcified nodule. Recommends PETCT scan. Chronic changes including pulmonary emphysema present. Chest x-ray was interpreted by the radiologist and I reviewed the impression. There is no evidence for any acute cardiopulmonary process. This patient's medical issue is 1 of moderate complexity. Level complexity in the work-up performed is based on review of the patient's past medical history, review of the patient's medication list, review the patient drug allergy list, history of present illness and physical findings on examination. The work-up in this patient includes a chest x-ray, twelve-lead EKG, troponin level, BNP level, CBC, CMP. In addition, because of the presence of the patient's known left lung mass, we ordered a CT scan of the chest without contrast. The findings are of above. Patient's shortness of breath is secondary to COPD exacerbation. We will send a prescription of prednisone to his pharmacy. He is to follow-up with his general production manager and primary care provider for further evaluation management. Blood Culture(s) Obtained: No Antibiotics given: No Counseled pt/family regarding: lab results, diagnosis, need for follow-up, rad results Medical Desision Making - Diagnostic Testing Diagnostic test were ordered, analyzed, and reviewed by me: Yes Radiological Interpretation: Reviewed by me, Teleradiologist Report - Risk of complications The pt has a mod risk of morbidity or mortality based on: Need for prescription drug management - Departure Departure Disposition: Home Clinical Impression: Shortness of breath, COPD with exacerbation Condition: Stable Critical Care Time: No Referrals: CAROLINE CUEVA TIPPLE TENDER [Primary Care Provider] - Follow up/PCP as directed Instructions: Chronic Obstructive Pulmonary Disease Additional Instructions: Take your medication as prescribed. Call your general production manager and your primary care provider today to make arrangements for follow-up appointment for further evaluation management including discussion of the PET CT scan. Prescriptions: Prednisone 10 mg [Deltasone 10 mg] 10 mg PO TID #12 tablet
[2023-07-15 09:56] VITALS: TEMP 97.2
[2023-07-15 10:08] LABS: Absolute Neutrophil Ct (ANC) 3.24 x10^3/uL (1.4-6.9); BASOPHIL % 0.9 % (0.0-0.4); Basophil (Absolute #) 0.06 x10^3/uL (0-0.4); Eosinophil % 2.8 % (0.00-5.0); Eosinophil (Absolute #) 0.18 x10^3/uL (0-0.5); Hematocrit 52.5 % (42-50); Hemoglobin 17.5 g/dL (12.5-18.0); IMMATURE GRAN # 0.01 x10^3u/L (0.00-0.03); IMMATURE GRAN % 0.2 % (0.00-0.4); Lymphocyte (Absolute #) 2.28 x10^3/uL (1.0-4.6); Lymphocytes % 35.1 % (24.0-44.0); Mean Cell Volume 97.2 fL (78-100); Mean Corpuscular Hemoglobin 32.4 pg (26-32); Mean Corpuscular Hgb Concent. 33.3 g/dL (32-36); Mean Platelet Volume 10.7 fL (7.5-11.0); Monocyte (Absolute #) 0.73 x10^3/uL (0.0-1.3); Monocytes % 11.2 % (0.0-12.0); Neutrophil % 49.8 % (36.0-66.0); Platelet Count 167 x10^3/uL (150-450); Red Cell Distribution Width 13.4 % (11.5-14.0); White Blood Count 6.5 x10^3/uL (4.0-10.5)
[2023-07-15] MEDS ORDERED: DUONEB 0.5-3 MG/3 ml Neb IH ONE ×2 (10:14→10:18)
[2023-07-15 10:32] LABS: ALBUMIN 4.3 g/dL (3.5-5.0); ALKALINE PHOSPHATASE 92 U/L (38-126); ANION GAP 13.1 MEQ/L (5-15); BLOOD UREA NITROGEN 20 mg/dL (9-20); CHLORIDE 107 mmol/L (98-107); Calcium 9.3 mg/dL (8.4-10.2); Carbon Dioxide 25 mmol/L (22-30); Creatinine 1 1.14 mg/dL (0.66-1.25); EST GLOMERULAR FILTRATION RATE > 60.0 ML/MIN; Glucose 127 mg/dL (74-106); NT PRO BNPII 350 pg/mL (<300); Potassium 4.5 mmol/L (3.5-5.1); SGOT/AST 26 U/L (17-59); SGPT/ALT 23 U/L (0-50); SODIUM 140 mmol/L (137-145)
--- NOTE | 2023-07-15 10:34 | XRAY ---
Indication: Short of breath. Comparison: June 28, 2021 Portable chest remains hyperinflated and clear. Heart not enlarged. Bony thorax intact. No new/acute findings.
--- NOTE | 2023-07-15 11:09 | XRAY ---
Indication: Short of breath. Left lung mass. Multiple contiguous axial images obtained through the chest without contrast. Comparison: July 11, 2022 Previous left upper lobe noncalcified masslike opacity appear smaller measuring 1.9 x 1.2 cm, previously 4.2 x 2.2 cm and favored to be benign. Previous 3 mm left lower lobe noncalcified nodule not seen either resolved or explained by difference in slice acquisition. Posterior left upper lobe demonstrates new 2.0 x 1.1 cm well-circumscribed noncalcified nodule. Stable diffuse pulmonary emphysema, scattered fibrosis/scarring, and 6 mm left upper lobe noncalcified nodule. Heart not enlarged. Aorta again mildly arteriosclerotic without aneurysm. Stable small right hilar calcified nodes. No pathologic mediastinal lymphadenopathy. Bony thorax intact again with mild/moderate degenerative changes throughout the spine. Limited upper abdomen demonstrates stable 1.3 cm right renal cyst. Impression: 1. Smaller left upper lobe noncalcified masslike opacity with measurements above. New well-circumscribed left upper lobe noncalcified nodule as detailed better evaluated with PET/CT. 2. Again chronic findings including pulmonary emphysema, left upper lobe noncalcified micronodule, pulmonary fibrosis/scarring, arteriosclerotic disease, chronic bony findings, right renal cyst, and old granulomatous disease.
[2023-07-15 11:38] VITALS: BP 143/98; PULSE 78; RESP 20; O2SAT 98
== END 2023-07-15 13:16 | disposition home or self-care (01) ==
LOC: ED 09:49
DX: J44.1 Chronic obstructive pulmonary disease with (acute) exacerbation (principal); R06.02 Shortness of breath; E78.5 Hyperlipidemia, unspecified; I12.9 Hypertensive chronic kidney disease with stage 1 through stage 4 chronic kidney disease, or unspecified chronic kidney disease; N18.2 Chronic kidney disease, stage 2 (mild); Z79.01 Long term (current) use of anticoagulants; Z79.899 Other long term (current) drug therapy; Z28.310 Unvaccinated for COVID-19; Z72.0 Tobacco use
CPT/HCPCS: 36000; 36415; 71045; 71250; 80053; 83880; 84484; 85025; 93005; 93041; 94640; 94760; 99284; A9270-GY

== ENCOUNTER 2023-12-23 16:55 | Emergency (ER) | payer OTHER ==
[2023-12-23 17:26] VITALS: TEMP 97.9
[2023-12-23] MEDS ORDERED: TORAdol 30 mg Injection IM ONE (17:32)
[2023-12-23] MEDS ORDERED: Norflex 60 MG/2 ML IM ONE (17:33)
[2023-12-23] MEDS ORDERED: TORAdol 30 mg Injection ONE (17:40)
[2023-12-23] MEDS ORDERED: Norflex 60 MG/2 ML ONE (17:41)
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
[2023-12-23 19:22] LABS: Absolute Neutrophil Ct (ANC) 6.35 x10^3/uL (1.4-6.9); BASOPHIL % 0.8 % (0.0-0.4); Basophil (Absolute #) 0.08 x10^3/uL (0-0.4); Eosinophil % 1.4 % (0.00-5.0); Eosinophil (Absolute #) 0.14 x10^3/uL (0-0.5); Hematocrit 51.4 % (42-50); Hemoglobin 17.4 g/dL (12.5-18.0); IMMATURE GRAN # 0.02 x10^3u/L (0.00-0.03); IMMATURE GRAN % 0.2 % (0.00-0.4); Lymphocyte (Absolute #) 2.49 x10^3/uL (1.0-4.6); Mean Cell Volume 95.9 fL (78-100); Mean Corpuscular Hemoglobin 32.5 pg (26-32); Mean Corpuscular Hgb Concent. 33.9 g/dL (32-36); Mean Platelet Volume 10.2 fL (7.5-11.0); Monocyte (Absolute #) 0.88 x10^3/uL (0.0-1.3); Monocytes % 8.8 % (0.0-12.0); Neutrophil % 63.8 % (36.0-66.0); Platelet Count 199 x10^3/uL (150-450); Red Blood Count 5.36 x10^6/uL (4.1-5.6); Red Cell Distribution Width 13.1 % (11.5-14.0)
[2023-12-23] MEDS ORDERED: Hydromorphone 1 mg/ml Injection IM ONE (19:22)
[2023-12-23] MEDS ORDERED: ZOFRAN ODT 4 MG PO ONE (19:23)
[2023-12-23] MEDS ORDERED: ZOFRAN ODT 4 MG ONE (19:45)
[2023-12-23] MEDS ORDERED: Hydromorphone 1 mg/ml Injection ONE (19:45)
[2023-12-23 19:47] LABS: ALBUMIN 4.3 g/dL (3.5-5.0); ANION GAP 9.7 MEQ/L (5-15); BILIRUBIN,TOTAL 0.6 mg/dL (0.2-1.3); Calcium 9.7 mg/dL (8.4-10.2); Creatinine 1 1.29 mg/dL (0.66-1.25); EST GLOMERULAR FILTRATION RATE 61.2 ML/MIN; Potassium 3.8 mmol/L (3.5-5.1); Total Protein 7.3 g/dL (6.3-8.2)
[2023-12-23 20:09] VITALS: RESP 18
[2023-12-23 21:15] VITALS: BP 150/82; PULSE 100
[2023-12-23 21:45] VITALS: O2SAT 96
--- NOTE | 2023-12-24 08:54 | XRAY ---
Indication: Pain following fall. Multiple contiguous axial images obtained through the lumbar spine. Sagittal and coronal reformatted images obtained. Comparison: January 06, 2022. Axial images negative for acute fracture, suspicious bony lesions, or spinal canal stenosis. Again mild/moderate multilevel degenerative disc disease again greatest at L5-S1. Sagittal and coronal reformatted images again demonstrates normal lumbar alignment with L1-S1 disc space narrowing again greatest at L5-S1. Stable minimal T12/L1 anterior wedging either remote injuries versus transitional segment speared no acute compression fracture or subluxation. Visualized noncontrasted soft tissues again demonstrates mild aortoiliac calcifications. Impression: 1. Again multilevel degenerative disc disease greatest at L5-S1 and scattered arteriosclerotic disease. 2. Remaining CT lumbar spine is negative.
== END 2023-12-23 21:11 | disposition home or self-care (01) ==
LOC: ED 16:55
DX: G89.29 Other chronic pain (principal); M54.50 Low back pain, unspecified; E78.5 Hyperlipidemia, unspecified; I12.9 Hypertensive chronic kidney disease with stage 1 through stage 4 chronic kidney disease, or unspecified chronic kidney disease; N18.2 Chronic kidney disease, stage 2 (mild); Z79.01 Long term (current) use of anticoagulants; Z79.891 Long term (current) use of opiate analgesic; Z79.899 Other long term (current) drug therapy; Z28.310 Unvaccinated for COVID-19; Z72.0 Tobacco use
CPT/HCPCS: 36415; 72131; 80053; 84484; 85025; 93005; 96372; 99284; J1170; J1885; J2360; Q0162

== ENCOUNTER 2025-04-08 08:49 | Emergency (ER) | payer OTHER ==
[2025-04-08 09:05] VITALS: PULSE 63; RESP 18; TEMP 96.6; O2SAT 98
[2025-04-08] MEDS ORDERED: Hydromorphone 1 mg/ml Injection ONE (09:16)
[2025-04-08] MEDS: Hydromorphone 1 mg/ml Injection IM ONE (09:18)
[2025-04-08] MEDS ORDERED: TORAdol 30 mg Injection ONE (10:19)
[2025-04-08] MEDS: TORAdol 30 mg Injection IM ONE (10:23)
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
[2025-04-08 11:20] VITALS: BP 146/95
== END 2025-04-08 11:43 | disposition home or self-care (01) ==
LOC: ED 08:49
DX: G89.29 Other chronic pain (principal); M54.50 Low back pain, unspecified; Z79.891 Long term (current) use of opiate analgesic; Z79.899 Other long term (current) drug therapy; Z72.0 Tobacco use; Z59.819 Housing instability, housed unspecified; Z59.82 Transportation insecurity; Z59.41 Food insecurity
CPT/HCPCS: 96372; 99283; 99284; J1171; J1885